=== PATIENT | female | born 1930 | race Caucasian/White ===

== ENCOUNTER 2016-07-01 12:56 | Inpatient (IN) | payer MEDICARE, OTHER ==
[~2016-07-01] VITALS: Ht 152.4 cm; Wt 57.2 kg
[~2016-07-01 12:56] MED LIST: ALBU17I INH; ASPI325T PO; CHOL4 PO; DIGO0.12 PO; DILT180C56 PO; EZET10 PO; FENO160T2 PO; FURO1TAB93 PO; GLIP5 PO; LEVO.1 PO; METO50CR PO; NEXI40CA PO; OMEPPOW PO; OXYB5TAB PO; ROSU40 PO; WAL-10TA2 PO; WARF1TAB PO
[2016-07-01 13:00] VITALS: BP 144/64; PULSE 65; RESP 18; TEMP 98.4; O2SAT 97
--- NOTE | 2016-07-01 13:03 | PD ---
Physical Exam Time Seen by Provider: 13:00 Narrative 86 y/o female here for evaluation of several days of SOB, intermittent L sided chest pain. Vital signs reviewed. Seen at triage desk. Awaiting bed placement. Data Data Last Documented VS Vital Signs Date Time Temp Pulse Resp B/P Pulse Ox O2 Delivery O2 Flow Rate FiO2 07/01/16 13:00 98.4 65 18 144/64 97 Room Air [facility] Medical Record Reviewed: Yes Supervised Visit with XIANG: Gianluca Antonio July 01, 2016 13:03
[2016-07-01 13:11] VITALS: BP 179/74; PULSE 60; RESP 19; O2SAT 96
--- NOTE | 2016-07-01 13:31 | PD ---
HPI Chief Complaint: Chest Pain Time Seen by Provider: 13:17 Travel History International Travel<30 days: No Contact w/Intl Traveler<30days: No Traveled to known affect area: No History of Present Illness HPI 86-year-old female complains of chest pain and shortness of breath. Patient states that the symptoms started 5 days ago. Patient states that she has intermittent dry cough. Patient states that she has intermittent left-sided chest discomfort, pressure pain. Patient states that she has shortness of breath also. Patient states that the symptom is worse when lying down and better sitting up or walking. Patient denies any pain radiation. Patient denies any palpitation diaphoresis. Patient denies any fever chills. Patient has history of atrial fibrillation, CAD status post CABG and OR. Patient has history hypertension, diabetes, hyperlipidemia. Patient is a nonsmoker. Patient is on Coumadin. PFSH Past Medical History Hx Anticoagulant Therapy: Yes Arthritis: Yes Blood Disorders: No Cardiac Catheterization: Yes Cardiovascular Problems: Yes High Cholesterol: Yes Coronary Artery Disease: Yes Diabetes: Yes Patient Takes Glucophage: No GERD: Yes Genitourinary: Yes Hypertension: Yes Psychiatric: No Myocardial Infarction: Yes Thyroid Disease: Yes Past Surgical History Abdominal Surgery: Yes Appendectomy: Yes Section: Yes Coronary Artery Bypass Graft: Yes (5 VESSEL IN 1988, 2002 CABG/VALVE) Thoracic Surgery: Yes Social History Alcohol Use: No Tobacco Use: No Substance Use: No Allergies-Medications (Allergen,Severity, Reaction): Coded Allergies: Nitroglycerin (Verified Allergy, Severe, 07/01/16) Uncoded Allergies: NITRO (Allergy, Unknown, 10/24/02) Reported Meds & Prescriptions Reported Meds & Active Scripts Active Reported Januvia (Sitagliptin Phosphate) 50 Mg Tab 50 Mg PO DAILY Zetia (Ezetimibe) 10 Mg Tab 10 Mg PO DAILY Warfarin 5 Mg Tab 5 Mg PO DAILY Telmisartan 20 Mg Tab 20 Mg PO DAILY Furosemide 40 Mg Tab 40 Mg PO DAILY Glipizide 5 Mg Tab 5 Mg PO BIDAC Take 30 minutes before a meal Ditropan (Oxybutynin Chloride) 5 Mg Tab 5 Mg PO Q12HR Metoprolol Tartrate 50 Mg Tab 50 Mg PO BID Rosuvastatin (Rosuvastatin Calcium) 40 Mg Tab 40 Mg PO DAILY Amlodipine (Amlodipine Besylate) 2.5 Mg Tab 2.5 Mg PO DAILY Fenofibrate 145 Mg Tab 145 Mg PO DAILY Levothyroxine (Levothyroxine Sodium) 100 Mcg Tab 100 Mcg PO DAILY Digoxin 0.25 Mg Tab 0.25 Mg PO DAILY Ventolin Hfa 18 GM Inh (Albuterol Sulfate) 90 Mcg/Act Aer 2 Puff INH Q4-6H PRN Review of Systems General / Constitutional: No: Fever Eyes: No: Visual changes HENT: No: Headaches Cardiovascular: Positive: Chest Pain or Discomfort Respiratory: Positive: Cough, Shortness of Breath Gastrointestinal: No: Abdominal Pain Genitourinary: No: Dysuria Musculoskeletal: No: Pain Skin: No Rash Neurologic: No: Weakness Psychiatric: No: Depression Endocrine: No: Polydipsia Hematologic/Lymphatic: No: Easy Bruising Physical Exam Narrative GENERAL: Well-nourished, well-developed patient. SKIN: Focused skin assessment warm/dry. HEAD: Normocephalic. EYES: No scleral icterus. No injection or drainage. NECK: Supple, trachea midline. No JVD or lymphadenopathy. CARDIOVASCULAR: Regular rate and rhythm without murmurs, gallops, or rubs. RESPIRATORY: Breath sounds equal bilaterally. No accessory muscle use. GASTROINTESTINAL: Abdomen soft, non-tender, nondistended. MUSCULOSKELETAL: No cyanosis, or edema. BACK: Nontender without obvious deformity. No CVA tenderness. Neurologic exam normal. Data Data Last Documented VS Vital Signs Date Time Temp Pulse Resp B/P Pulse Ox O2 Delivery O2 Flow Rate FiO2 07/01/16 14:47 55 18 173/85 98 Nasal Cannula 2 07/01/16 13:00 98.4 Orders Electrocardiogram (07/01/16 13:23) Complete Blood Count With Diff (07/01/16 13:23) Comprehensive Metabolic Panel (07/01/16 13:23) Creatine Kinase (Cpk) (07/01/16 13:23) Troponin I (07/01/16 13:23) B-Type Natriuretic Peptide (07/01/16 13:23) Prothrombin Time / Inr (Pt) (07/01/16 13:23) Act Partial Throm Time (Ptt) (07/01/16 13:23) Urinalysis - C+S If Indicated (07/01/16 13:23) Digoxin (07/01/16 13:23) Thyroid Stimulating Hormone (07/01/16 13:23) Chest, Single Ap (07/01/16 13:23) Iv Access Insert/Monitor (07/01/16 13:23) Ecg Monitoring (07/01/16 13:23) Oximetry (07/01/16 13:23) Ct Pulmonary Angiogram (07/01/16 13:23) Iodixanol 320 Inj (Rad Ct) (Visipaque 32 (07/01/16 15:55) Labs Laboratory Tests Test 07/01/16 07/01/16 13:35 13:41 Prothrombin Time 33.5 SEC Prothromb Time International 2.9 RATIO Ratio Activated Partial 39.7 SEC Thromboplast Time Sodium Level 140 MEQ/L Potassium Level 4.5 MEQ/L Chloride Level 105 MEQ/L Carbon Dioxide Level 28.5 MEQ/L Anion Gap 7 MEQ/L Blood Urea Nitrogen 31 MG/DL Creatinine 1.33 MG/DL Estimat Glomerular Filtration 38 ML/MIN Rate Random Glucose 91 MG/DL Calcium Level 10.3 MG/DL Total Bilirubin 0.4 MG/DL Aspartate Amino Transf 21 U/L (AST/SGOT) Alanine Aminotransferase 20 U/L (ALT/SGPT) Alkaline Phosphatase 41 U/L Total Creatine Kinase 59 U/L Troponin I LESS THAN 0.02 NG/ML Total Protein 7.4 GM/DL Albumin 3.3 GM/DL Thyroid Stimulating Hormone 2.030 uIU/ML 3rd Gen Digoxin Level 1.1 NG/ML White Blood Count 7.7 TH/MM3 Red Blood Count 4.14 MIL/MM3 Hemoglobin 11.4 GM/DL Hematocrit 35.4 % Mean Corpuscular Volume 85.4 FL Mean Corpuscular Hemoglobin 27.6 PG Mean Corpuscular Hemoglobin 32.4 % Concent Red Cell Distribution Width 15.0 % Platelet Count 249 TH/MM3 Mean Platelet Volume 8.3 FL Neutrophils (%) (Auto) 71.9 % Lymphocytes (%) (Auto) 14.1 % Monocytes (%) (Auto) 9.9 % Eosinophils (%) (Auto) 3.3 % Basophils (%) (Auto) 0.8 % Neutrophils # (Auto) 5.5 TH/MM3 Lymphocytes # (Auto) 1.1 TH/MM3 Monocytes # (Auto) 0.8 TH/MM3 Eosinophils # (Auto) 0.3 TH/MM3 Basophils # (Auto) 0.1 TH/MM3 CBC Comment DIFF FINAL Differential Comment B-Type Natriuretic Peptide 187 PG/ML [facility] Medical Decision Making Medical Screen Exam Complete: Yes Emergency Medical Condition: Yes Medical Record Reviewed: Yes Interpretation(s) Last Impressions Chest X-Ray 07/01/16 1323 Signed Impressions: Service Date/Time: Friday, July 01, 2016 13:49 - CONCLUSION: 1. Left basilar consolidation and probable pleural effusion. 2. Cardiomegaly and previous heart valve replacement. 3. Right basilar atelectasis. Jere Salcido MD CT Angiography 07/01/163 Signed Impressions: Service Date/Time: Friday, July 01, 2016 15:33 - CONCLUSION: 1. No evidence of pulmonary embolism. 2. Large left pleural effusion. This would be accessible to percutaneous drainage. 3. Pulmonary fibrosis Duane Damian MD 1701 p.m. Differential Diagnosis Differential diagnosis including angina, OR, PE, pneumothorax. Narrative Course 86-year-old female with chest pain and shortness of breath. Diagnosis Primary Impression: Pleural effusion, left Additional Impressions: Chest pain Qualified Code: R07.9 - Chest pain, unspecified type Chronic anticoagulation Admitting Information Admitting Physician Requests: Admit Dax Madden MD July 01, 2016 13:31
[2016-07-01 13:56] LABS: AUTOMATED NEUTROPHIL # 5.5 TH/MM3 (1.8-7.7); BASOPHIL # 0.1 TH/MM3 (0-0.2); BASOPHIL % 0.8 % (0.0-2.0); EOSINOPHIL # 0.3 TH/MM3 (0-0.4); EOSINOPHIL % 3.3 % (0.0-4.0); HEMATOCRIT 35.4 % (35.0-46.0); HEMO FLAGS DIFF FINAL; LYMPH % 14.1 % (9.0-44.0); LYMPHOCYTE # 1.1 TH/MM3 (1.0-4.8); MEAN CELL VOLUME 85.4 FL (80.0-100.0); MEAN CORPUSCULAR HEMOGLOBIN 27.6 PG (27.0-34.0); MEAN CORPUSCULAR HGB CONC 32.4 % (32.0-36.0); MONO % 9.9 % (0.0-8.0); NEUT % 71.9 % (16.0-70.0); PLATELET COUNT 249 TH/MM3 (150-450); RED BLOOD COUNT 4.14 MIL/MM3 (4.00-5.30); WHITE BLOOD COUNT 7.7 TH/MM3 (4.0-11.0)
[2016-07-01 13:59] VITALS: O2SAT 97
[2016-07-01 14:04] LABS: APTT (PATIENT) 39.7 SEC (24.3-30.1); INTERNATIONAL NORMALIZED RATIO 2.9 RATIO; PROTHROMBIN TIME - PATIENT 33.5 SEC (9.8-11.6)
[2016-07-01 14:11] LABS: ALT (GPT) 20 U/L (10-53); ANION GAP 7 MEQ/L (5-15); AST (GOT) 21 U/L (15-37); BICARBONATE 28.5 MEQ/L (21.0-32.0); BLOOD UREA NITROGEN 31 MG/DL (7-18); CHLORIDE 105 MEQ/L (98-107); GLOMERULAR FILTRATION RATE 38 ML/MIN (>89); POTASSIUM 4.5 MEQ/L (3.5-5.1); SODIUM (NA) 140 MEQ/L (136-145)
--- NOTE | 2016-07-01 14:12 | RADRPT ---
EXAM DATE/TIME: 07/01/2016 13:49 [facility] COMPARISON: No previous studies available for comparison. INDICATIONS : Short of breath for several days. MEDICAL HISTORY : Hypertension. Hypercholesterolemia. Cardiovascular disease. Thyroid disease. GERD. SURGICAL HISTORY : CABG. Appendectomy. ENCOUNTER: Initial ACUITY: 4 - 6 days PAIN SCORE: 3/10 LOCATION: Bilateral chest FINDINGS: A single view of the chest demonstrates left basilar consolidation and probable pleural effusion. Hea rt enlarged and evidence of previous valve replacement. Minimal right basilar atelectasis. Osseous s tructures are intact. CONCLUSION: 1. Left basilar consolidation and probable pleural effusion. 2. Cardiomegaly and previous heart valve replacement. 3. Right basilar atelectasis. Jere Salcido MD on July 01, 2016 at 14:09 Board Certified Radiologist. This report was verified electronically.
[2016-07-01] MEDS ORDERED: OXYB5TAB10 PO (14:15)
[2016-07-01] MEDS ORDERED: VENTAER INH (14:15)
[2016-07-01] MEDS ORDERED: TELM5TAB PO (14:15)
[2016-07-01] MEDS ORDERED: ROSU1TAB10 PO (14:15)
[2016-07-01] MEDS ORDERED: LEVO100T5 PO (14:15)
[2016-07-01] MEDS ORDERED: METO50TA PO (14:15)
[2016-07-01] MEDS ORDERED: SITA50 PO (14:15)
[2016-07-01] MEDS ORDERED: WARF-23 PO (14:15)
[2016-07-01] MEDS ORDERED: ZETI10TA5 PO (14:15)
[2016-07-01] MEDS ORDERED: GLIP5TAB8 PO (14:15)
[2016-07-01] MEDS ORDERED: AMLO2.5T PO (14:15)
[2016-07-01] MEDS ORDERED: FENO145T2 PO (14:15)
[2016-07-01] MEDS ORDERED: DIGO0.25 PO (14:15)
[2016-07-01] MEDS ORDERED: FURO40TA PO (14:15)
[2016-07-01 14:26] LABS: ALKALINE PHOSPHATASE 41 U/L (45-117); DIGOXIN 1.1 NG/ML (0.8-2.0); TOTAL BILIRUBIN ADULT 0.4 MG/DL (0.2-1.0)
[2016-07-01 14:29] LABS: CREATINE KINASE 59 U/L (26-192)
[2016-07-01 14:47] VITALS: BP 173/85; PULSE 55; RESP 18; O2SAT 98
[2016-07-01] MEDS ORDERED: IODIXANOL 320 MG/ML 10 ML VIAL (for Rad CT) IV ONE (15:55)
--- NOTE | 2016-07-01 16:37 | RADRPT ---
EXAM DATE/TIME: 07/01/2016 15:33 [facility] COMPARISON: No previous studies available for comparison. INDICATIONS : Shortness of breath with intermittent chest painfor five days. IV CONTRAST: 50 cc Visipaque (iodixanol) IV RADIATION DOSE: 23.10 CTDIvol (mGy) MEDICAL HISTORY : Cardiovascular disease. Hypertension. Diabetes SURGICAL HISTORY : CABG Appendectomy. ENCOUNTER: Initial ACUITY: 3 days PAIN SCALE: 8/10 LOCATION: chest TECHNIQUE: Volumetric scanning of the chest was performed using a pulmonary embolism protocol MIP images were re constructed. Using automated exposure control and adjustment of the mA and/or kV according to patien t size, radiation dose was kept as low as reasonably achievable to obtain optimal diagnostic quality images. FINDINGS: There is a large left-sided effusion with volume loss which is loculated laterally. There is extensiv e compressive atelectasis of the left lower lobe. There are interstitial alveolar opacities bilateral ly characteristic of idiopathic pulmonary fibrosis. No pulmonary nodules are identified. Coronary artery calcifications are present. Nonspecific slightly enlarged mediastinal and hilar nodes are present likely related to a chronic inflammatory process. Examination of the pulmonary vasculature demonstrates good filling of the main, lobar and segmental b ranches. There are no filling defects to suggest pulmonary embolism. Multiplanar reconstructions are also unremarkable. CONCLUSION: 1. No evidence of pulmonary embolism. 2. Large left pleural effusion. This would be accessible to percutaneous drainage. 3. Pulmonary fibrosis Duane Damian MD on July 01, 2016 at 16:32 Board Certified Radiologist. This report was verified electronically.
[2016-07-01 17:09] VITALS: BP 145/67; PULSE 61; RESP 16; O2SAT 97
[2016-07-01] MEDS ORDERED: SODIUM CHLORIDE 0.9% FLUSH 10 ML FLUSH IV FLUSH PRN (17:30)
[2016-07-01] MEDS ORDERED: ONDANSETRON HCL 4 MG/2 ML VIAL IVP PRN (17:30)
[2016-07-01] MEDS ORDERED: PILL SPLITTER OTHER PRN (17:30)
[2016-07-01] MEDS ORDERED: NALOXONE HCL 0.4 MG/ML AMP IV PRN (17:30)
[2016-07-01] MEDS ORDERED: BISACODYL 10 MG SUPP RECTAL PRN (17:30)
[2016-07-01] MEDS: DOCUSATE SODIUM 100 MG CAP PO SCH (17:50)
[2016-07-01] MEDS ORDERED: PHYTONADIONE 10 MG/ML VIAL SQ ONE (18:00)
--- NOTE | 2016-07-01 18:07 | HHI.HP ---
[facility] Brock Albright MD Admission Diagnosis left pleural effusion. Chest pain. Diagnoses: Chief Complaint: "I couldn't breath." Travel History International Travel<30 Days: No Contact w/Intl Traveler <30 Da: No Traveled to Known Affected Are: No History of Present Illness Mrs. Evans is 86 yo, with history of Atrial fibrillation, CAD, Diabetes Mellitus II, myocardial infarction, hypertension, hyperlipidemia, renal disease, and CHF. She reported having shortness of breath that began "2-3 days ago" with gradual onset. Over the time she found it difficult to lie down and sleep and "felt like I was smothering." She spoke of needing to add an additional pillow to sleep and found herself "sitting up in the bed so I could breathe and sleep." Over the course of the past two days she was "pestered by my family to come in to the hospital and get checked out." She stated she went to get her "blood checked because i am on Coumadin and they sent me in here." Pt noted she has had a cough, but this is attributed to allergies. Pt also reported she has been staggering "like a drunk paper guillotine operator" and upon further questioning this has been occurring over a 2-3 year period. Currently, she is denying fever, nausea, vomiting, diarrhea, bloody stool or urine, light headedness and dizziness was denied. her family denied pt evidencing blue lips. Pt reported having chest pain that was left sided and went to her back. She said this "was different from when I had my heart attack because then I didn't have any pain." Pt said she didn't seek care as "i was hoping it would go away. " She reported right shoulder pain, especially when "lifting her arm above my head." Pain was reported at time of interview as sharp and worsened with shoulder shrug and movement. Pain was reported as "sharp" with intensity not rated. Pt reported having "kidney disease" and family stated she has "stage II or III disease"; her hand polisher is reported to be Dimple Castelan M.D. No other issues were noted or reported. Review of Systems Except as stated in HPI: all other systems reviewed are Neg Past Family Social History Past Medical History Atrial fibrillation, CAD, CHF Diabetes Mellitus II, Environmental Allergies hyperlipidemia, hypertension, hypothyroidism myocardial infarction Past Surgical History Cabg x 2 (1988 and 2002) Valve replacement 2002. Reported Medications Reported Meds & Active Scripts Active Reported Januvia (Sitagliptin Phosphate) 50 Mg Tab 50 Mg PO DAILY Zetia (Ezetimibe) 10 Mg Tab 10 Mg PO DAILY Warfarin 5 Mg Tab 5 Mg PO DAILY Telmisartan 20 Mg Tab 20 Mg PO DAILY Furosemide 40 Mg Tab 40 Mg PO DAILY Glipizide 5 Mg Tab 5 Mg PO BIDAC Take 30 minutes before a meal Ditropan (Oxybutynin Chloride) 5 Mg Tab 5 Mg PO Q12HR Metoprolol Tartrate 50 Mg Tab 50 Mg PO BID Rosuvastatin (Rosuvastatin Calcium) 40 Mg Tab 40 Mg PO DAILY Amlodipine (Amlodipine Besylate) 2.5 Mg Tab 2.5 Mg PO DAILY Fenofibrate 145 Mg Tab 145 Mg PO DAILY Levothyroxine (Levothyroxine Sodium) 100 Mcg Tab 100 Mcg PO DAILY Digoxin 0.25 Mg Tab 0.25 Mg PO DAILY Ventolin Hfa 18 GM Inh (Albuterol Sulfate) 90 Mcg/Act Aer 2 Puff INH Q4-6H PRN Allergies: Coded Allergies: Nitroglycerin (Verified Allergy, Severe, 07/01/16) Uncoded Allergies: NITRO (Allergy, Unknown, 10/24/02) Active Ordered Medications Current Medications Medications (Trade) Dose Ordered Sig/Shlomo Route Start Time Stop Time Status Last Admin (Norvasc) 2.5 mg DAILY PO 07/02/16 09:00 (Lanoxin) 0.25 mg DAILY PO 07/02/16 09:00 (Tricor) 145 mg DAILY PO 07/02/16 09:00 Future Hold (Lasix) 40 mg DAILY PO 07/02/16 09:00 (Synthroid) 100 mcg DAILY@06 PO 07/02/16 06:00 (Lopressor) 50 mg BID PO 07/01/16 21:00 (Ditropan) 5 mg Q12HR PO 07/01/16 21:00 (NS Flush) 2 ml UNSCH PRN IV FLUSH 5/16/17 17:30 (NS Flush) 2 ml BID IV FLUSH 07/01/16 21:00 (Tylenol) 650 mg Q4H PRN PO 07/01/16 17:30 (Zofran Inj) 4 mg Q6H PRN IVP 07/01/16 17:30 (Dulcolax Supp) 10 mg DAILY PRN RECTAL 07/01/16 17:30 (Colace) 100 mg Q12H PO 07/01/16 18:00 07/01/16 17:50 (Narcan Inj) 0.4 mg UNSCH PRN IV 07/01/16 17:30 (Pill Splitter) 1 ea UNSCH PRN OTHER 07/01/16 17:30 (Lipitor) 80 mg DAILY PO 07/02/16 09:00 (Cozaar) 25 mg DAILY PO 07/02/16 09:00 Family History No family history was reported. Social History Pt denied smoking, alcohol, and substance use/abuse. Physical Exam Vital Signs Vital Signs Date Time Temp Pulse Resp B/P Pulse Ox O2 Delivery O2 Flow Rate FiO2 07/01/16 17:09 61 16 145/67 97 Nasal Cannula 2 07/01/16 14:47 55 18 173/85 98 Nasal Cannula 2 07/01/16 13:59 97 Nasal Cannula 2 07/01/16 13:11 60 19 179/74 96 Nasal Cannula 2 07/01/16 13:00 98.4 65 18 144/64 97 Room Air Physical Exam GENERAL: This is a well-nourished, well-developed patient, pleasant and cooperative, in no apparent distress. SKIN: No rashes, ecchymoses or lesions. Cool and dry. HEAD: Atraumatic. Normocephalic. No temporal or scalp tenderness. EYES: Pupils equal round and reactive. Extraocular motions intact. No scleral icterus. No injection or drainage. ENT: Nose without bleeding, purulent drainage. Throat without erythema, tonsillar hypertrophy or exudate. Uvula midline. Airway patent. Upper and lower dentures present. NECK: Trachea midline. No JVD or lymphadenopathy. Supple, nontender. CARDIOVASCULAR: Regular rate and rhythm without murmurs, gallops, or rubs. RESPIRATORY: Clear to auscultation. Breath sounds good on the right. Left sided breath sounds were distant and diminished. No wheezes, rales, or rhonchi. pt on nasal cannula oxygen at time of examination. GASTROINTESTINAL: Abdomen soft, non-tender, nondistended. No hepato-splenomegaly , or palpable masses. No guarding. MUSCULOSKELETAL: Extremities without clubbing, cyanosis. Trace bilateral edema noted. Varicose veins noted on lower extremities. No joint tenderness, effusion , or edema noted. No calf tenderness. NEUROLOGICAL: Awake and alert. Cranial nerves II through XII intact. Motor and sensory grossly within normal limits. Five out of 5 muscle strength in upper muscle groups with 3/5 for lower extremities. Normal speech. Laboratory Laboratory Tests Test 07/01/16 07/01/16 13:35 13:41 Prothrombin Time 33.5 Prothromb Time International 2.9 Ratio Activated Partial 39.7 Thromboplast Time Sodium Level 140 Potassium Level 4.5 Chloride Level 105 Carbon Dioxide Level 28.5 Anion Gap 7 Blood Urea Nitrogen 31 Creatinine 1.33 Estimat Glomerular Filtration 38 Rate Random Glucose 91 Calcium Level 10.3 Total Bilirubin 0.4 Aspartate Amino Transf 21 (AST/SGOT) Alanine Aminotransferase 20 (ALT/SGPT) Alkaline Phosphatase 41 Total Creatine Kinase 59 Troponin I LESS THAN 0.02 Total Protein 7.4 Albumin 3.3 Thyroid Stimulating Hormone 2.030 3rd Gen Digoxin Level 1.1 White Blood Count 7.7 Red Blood Count 4.14 Hemoglobin 11.4 Hematocrit 35.4 Mean Corpuscular Volume 85.4 Mean Corpuscular Hemoglobin 27.6 Mean Corpuscular Hemoglobin 32.4 Concent Red Cell Distribution Width 15.0 Platelet Count 249 Mean Platelet Volume 8.3 Neutrophils (%) (Auto) 71.9 Lymphocytes (%) (Auto) 14.1 Monocytes (%) (Auto) 9.9 Eosinophils (%) (Auto) 3.3 Basophils (%) (Auto) 0.8 Neutrophils # (Auto) 5.5 Lymphocytes # (Auto) 1.1 Monocytes # (Auto) 0.8 Eosinophils # (Auto) 0.3 Basophils # (Auto) 0.1 CBC Comment DIFF FINAL Differential Comment B-Type Natriuretic Peptide 187 Result Diagram: 07/01/16 1341 07/01/16 1335 Imaging Last Impressions Chest X-Ray 07/01/16 1323 Signed Impressions: Service Date/Time: Friday, July 01, 2016 13:49 - CONCLUSION: 1. Left basilar consolidation and probable pleural effusion. 2. Cardiomegaly and previous heart valve replacement. 3. Right basilar atelectasis. Jere Salcido MD CT Angiography 07/01/16 1323 Signed Impressions: Service Date/Time: Friday, July 01, 2016 15:33 - CONCLUSION: 1. No evidence of pulmonary embolism. 2. Large left pleural effusion. This would be accessible to percutaneous drainage. 3. Pulmonary fibrosis Duane Damian MD Assessment and Plan Problem List: (1) Pleural effusion, left ICD Code: J90 Status: Acute (2) Chronic anticoagulation ICD Code: Z79.01 Status: Acute (3) Chest pain ICD Code: R07.9 Status: Acute (4) Atrial fibrillation ICD Code: I48.91 Status: Chronic (5) Diabetes mellitus, type II ICD Code: E11.9 Status: Chronic (6) CHF (congestive heart failure) ICD Code: I50.9 Status: Chronic (7) Renal disease ICD Code: N28.9 Status: Acute Assessment and Plan Pleural effusion, left atrial fibrillation CHF Chronic anticoagulation hypertension Chest pain -Pt's INR is elevated and will be reversed with Vitamin K. -Due to her CHF, frozen plasma can't be used out of concern of volume overload. -Because of kidney status diuretics can't be used at this time to address the pleural effusion. -Continue home beta steven. Will hold her Cozaar due to renal issues. -Supplemental oxygen ordered. Diabetes mellitus -holding home medication and placing pt on sliding scale insulin. acute on chronic kidney disease -BUN and Creatine are elevated (31 and 1.33 respectively) with a ratio of 23.31. -avoid nephrotoxic agents. -Due to CHF concerns, IVF can't be used at this time to address these elevations. Patient seen in the room in the presence of PA, her , her Son and her Daughter in law all questions answered and plan of care discussed. Code Status Full Code Discussed Condition With Case discussed with ED physician, PT, Pt's family at bedside. Physician Certification 2 Midnight Certification Type: Admission for Inpatient Services Order for Inpatient Services The services are ordered in accordance with Medicare regulations or non- Medicare payer requirements, as applicable. In the case of services not specified as inpatient-only, they are appropriately provided as inpatient services in accordance with the 2-midnight benchmark. Estimated LOS (days): 3 Three days is the estimated time the patient will need to remain in the hospital , assuming treatment plan goals are met and no additional complications. Post-Hospital Plan: Home Problem Qualifiers (1) Chest pain: Qualified Code: R07.9 - Chest pain, unspecified type (2) Atrial fibrillation: Qualified Code: I48.2 - Chronic atrial fibrillation (3) Diabetes mellitus, type II: (4) CHF (congestive heart failure): Qualified Code: I50.9 - Chronic congestive heart failure, unspecified congestive heart failure type Galo Johnston Jr. July 01, 2016 18:07 Eloy Cai MD July 02, 2016 07:49
[2016-07-01 19:39] LABS: CREATINE KINASE 43 U/L (26-192)
[2016-07-01 20:00] VITALS: BP 120/58; PULSE 66; RESP 20; TEMP 97.7; O2SAT 96
[2016-07-01] MEDS: METOPROLOL TARTRATE 50 MG TAB PO SCH (22:10)
[2016-07-01] MEDS: OXYBUTYNIN CHLORIDE 5 MG TAB PO SCH (22:10)
[2016-07-01] MEDS: SODIUM CHLORIDE 0.9% FLUSH 10 ML FLUSH IV FLUSH SCH (22:11)
[2016-07-01] MEDS: INSULIN NovoLIN REGULAR SUPPLEMENTAL SCALE SQ SCH (22:18)
[2016-07-01 23:35] LABS: BLOOD, URINE NEG (NEG); GLUCOSE,URINE 300 mg/dL (NEG); KETONE, URINE NEG (NEG); NITRITE,URINE NEG (NEG); PH, URINE 6.5 (5.0-8.5); URINE COLOR YELLOW (YELLW/STRAW)
[2016-07-01 23:37] LABS: COMMENT (UR) CULT NOT INDICATED; CULTURE IF INDICATED CULT NOT INDICATED
[2016-07-01 23:55] LABS: CREATINE KINASE 30 U/L (26-192)
[2016-07-02] VITALS (8 sets, daily range): BP systolic 112–144; BP diastolic 56–64; PULSE 53–68; RESP 16–20; TEMP 97.6–98.3; O2SAT 96–98
[2016-07-02] MEDS: LEVOTHYROXINE SODIUM 100 MCG TAB PO SCH (06:37)
[2016-07-02] MEDS: DOCUSATE SODIUM 100 MG CAP PO SCH ×2 (06:37→17:31)
[2016-07-02 06:49] LABS: AUTOMATED NEUTROPHIL # 5.5 TH/MM3 (1.8-7.7); BASOPHIL # 0.1 TH/MM3 (0-0.2); BASOPHIL % 0.8 % (0.0-2.0); EOSINOPHIL # 0.3 TH/MM3 (0-0.4); EOSINOPHIL % 3.8 % (0.0-4.0); HEMATOCRIT 33.1 % (35.0-46.0); HEMO FLAGS DIFF FINAL; LYMPH % 14.5 % (9.0-44.0); LYMPHOCYTE # 1.2 TH/MM3 (1.0-4.8); MEAN CELL VOLUME 83.9 FL (80.0-100.0); MEAN CORPUSCULAR HEMOGLOBIN 28.7 PG (27.0-34.0); MEAN CORPUSCULAR HGB CONC 34.2 % (32.0-36.0); MONO % 11.3 % (0.0-8.0); NEUT % 69.6 % (16.0-70.0); PLATELET COUNT 241 TH/MM3 (150-450); RED BLOOD COUNT 3.95 MIL/MM3 (4.00-5.30); RED CELL DISTRIBUTION WIDTH 15.3 % (11.6-17.2); WHITE BLOOD COUNT 7.9 TH/MM3 (4.0-11.0)
[2016-07-02 07:00] LABS: INTERNATIONAL NORMALIZED RATIO 2.2 RATIO; PROTHROMBIN TIME - PATIENT 24.6 SEC (9.8-11.6)
[2016-07-02] MEDS: INSULIN NovoLIN REGULAR SUPPLEMENTAL SCALE SQ SCH ×4 (07:00→21:00)
[2016-07-02 07:08] LABS: BICARBONATE 27.7 MEQ/L (21.0-32.0); POTASSIUM 3.9 MEQ/L (3.5-5.1)
[2016-07-02] MEDS: SODIUM CHLORIDE 0.9% FLUSH 10 ML FLUSH IV FLUSH SCH ×2 (08:42→23:40)
[2016-07-02] MEDS: ATORVASTATIN 80 MG TAB PO SCH (08:42)
[2016-07-02] MEDS: amLODIPine BESYLATE 5 MG TAB PO SCH (08:42)
[2016-07-02] MEDS: METOPROLOL TARTRATE 50 MG TAB PO SCH ×2 (08:42→23:35)
[2016-07-02] MEDS: DIGOXIN 0.25 MG TAB PO SCH (08:42)
[2016-07-02] MEDS: OXYBUTYNIN CHLORIDE 5 MG TAB PO SCH ×2 (08:42→23:36)
[2016-07-02] MEDS ORDERED: FUROSEMIDE 40 MG TAB PO SCH (09:00)
[2016-07-02] MEDS ORDERED: FENOFIBRATE 145 MG TAB PO SCH (09:00)
[2016-07-02] MEDS ORDERED: LOSARTAN 25 MG TAB PO SCH (09:00)
[2016-07-02] MEDS ORDERED: TELMISARTAN 20 MG PO SCH (09:00)
[2016-07-02] MEDS ORDERED: WARFARIN SOD 5 MG TAB PO SCH (09:00)
[2016-07-02] MEDS ORDERED: NON-FORMULARY DRUG (Rosuvastatin 40 MG) PO SCH (09:00)
--- NOTE | 2016-07-02 11:04 | EKG ---
Date Performed: 07/01/2016 Time Performed: 13:39:48 PTAGE: 86 years EKG: SINUS BRADYCARDIA NONSPECIFIC T-WAVE ABNORMALITY BORDERLINE ECG PREVIOUS TRACING : 02/26/2012 07.02 DOCTOR: Augustine Alejandre Interpretating Date/Time 07/02/2016 11:02:15
[2016-07-02] MEDS ORDERED: FUROSEMIDE 20 MG/2 ML VIAL IV PUSH ONE (13:15)
--- NOTE | 2016-07-02 13:18 | HHI.PR ---
Subjective Remarks Follow up for shortness of breath, pleural effusion. Patient is doing better today. Denies any chest pain, shortness of breath, fever, chills. Objective Vitals Vital Signs Date Time Temp Pulse Resp B/P Pulse Ox O2 Delivery O2 Flow Rate FiO2 07/02/16 08:00 97.6 68 20 144/64 97 07/02/16 04:00 98.0 53 20 124/59 98 07/02/16 00:00 98.0 65 18 112/56 96 07/01/16 20:00 97.7 66 20 120/58 96 07/01/16 17:09 61 16 145/67 97 Nasal Cannula 2 07/01/16 14:47 55 18 173/85 98 Nasal Cannula 2 07/01/16 13:59 97 Nasal Cannula 2 I/O 07/01/16 07/01/16 07/01/16 07/02/16 07/02/16 07/02/16 07:00 15:00 23:00 07:00 15:00 23:00 Intake Total 120 ml 120 ml Output Total 240 ml Balance 120 ml -120 ml Intake Oral 120 ml 120 ml Output Urine Total 240 ml # Voids 1 # Bowel Movements 0 0 Result Diagram: 07/02/16 0605 07/02/16 0625 Imaging Last Impressions Chest X-Ray 07/01/161322 Signed Impressions: Service Date/Time: Friday, July 01, 2016 13:49 - CONCLUSION: 1. Left basilar consolidation and probable pleural effusion. 2. Cardiomegaly and previous heart valve replacement. 3. Right basilar atelectasis. Jere Salcido MD CT Angiography 07/01/161322 Signed Impressions: Service Date/Time: Friday, July 01, 2016 15:33 - CONCLUSION: 1. No evidence of pulmonary embolism. 2. Large left pleural effusion. This would be accessible to percutaneous drainage. 3. Pulmonary fibrosis Duane Damian MD Objective Remarks GENERAL: AOx3, NAD. SKIN: Warm and dry. HEAD: Normocephalic. EYES: No scleral icterus. No injection or drainage. NECK: Supple, trachea midline. No JVD or lymphadenopathy. CARDIOVASCULAR: Regular rate and rhythm without murmurs, gallops, or rubs. RESPIRATORY: Diminished breath sound on the left lower lung field. Moderate air entry. Right basilar crackles. GASTROINTESTINAL: Abdomen soft, non-tender, nondistended. MUSCULOSKELETAL: No cyanosis, or edema. BACK: Nontender without obvious deformity. No CVA tenderness. Procedures None. A/P Problem List: (1) Pleural effusion, left ICD Code: J90 Status: Acute (2) Chronic anticoagulation ICD Code: Z79.01 Status: Acute (3) Chest pain ICD Code: R07.9 Status: Acute (4) Atrial fibrillation ICD Code: I48.91 Status: Chronic (5) Diabetes mellitus, type II ICD Code: E11.9 Status: Chronic (6) CHF (congestive heart failure) ICD Code: I50.9 Status: Chronic (7) Renal disease ICD Code: N28.9 Status: Acute Assessment and Plan Ms. Evans is a pleasant 86 year old female with a history of CAD s/p CABG, Afib on warfarin who presented to the ED on 07/01/2016 due to chest pain, shortness of breath. Her symptoms started 5 days prior to this hospitalization. She reports orthopnea. She did not have any fever, chills BNP was 187 on admission. Troponin x 3 negative. Creatinine 1.33 on admission. INR 2.9 on admission. Large left pleural effusion was noted on CT and CXR. - Acute respiratory failure hypoxic - Large left pleural effusion - Likely due to pleural effusion. - CXR, CT angio images reviewed by me. CXR reports possible consolidation. - Will increase lasix to 20mg IV BID. - Repeat INR in the AM. If INR is below 1.5, we will request IR to do a diagnostic and therapeutic thoracentesis. - If INR is above 1.5 or above the threshold set by IR, we will give FFP first. - We will empirically start patient on Levaquin 750mg Qday - Diabetes mellitus - Start Levemir 7 units QHS, continue sliding scale insulin. May need to titrate Levemir and add pre-meal insulin. - CAD s/p CABG - Hyperlipidemia - Hypertension - Atrial fibrillation - Continue Amlodipine 2.5mg Qday - Continue Atorvastatin 80mg Qday, metoprolol 50mg BID, Digoxin 0.25mg Qday. - Continue Lasix IV 20mg BID. - Hypothyroidism - Continue Levothyroxine 100 mcg Qday. Full code. Was on warfarin. INR 2.2 today. Problem Qualifiers (1) Chest pain: Qualified Code: R07.9 - Chest pain, unspecified type (2) Atrial fibrillation: Qualified Code: I48.2 - Chronic atrial fibrillation (3) Diabetes mellitus, type II: (4) CHF (congestive heart failure): Qualified Code: I50.9 - Chronic congestive heart failure, unspecified congestive heart failure type Mary Jo Crenshaw DO July 02, 2016 13:18
--- NOTE | 2016-07-02 17:24 | EC ---
Study Study Date:07/02/2016 STUDY CONCLUSIONS SUMMARY - Left ventricle: The cavity size was normal. Wall thickness was normal. Systolic function was normal. The estimated ejection fraction was 55%. Wall motion was normal; there were no regional wall motion abnormalities. - Aortic valve: Calcified annulus. Trileaflet; mildly thickened, mildly calcified leaflets. Transvalvular velocity was increased. There was mild stenosis. Trace regurgitation. Mean gradient: 17mm Hg (S). Peak gradient: 32mm Hg (S). Valve area: 1.11cm^2 (Vmax). - Mitral valve: Mild to moderate regurgitation. - Tricuspid valve: Mild-moderate regurgitation. - Pulmonary arteries: Systolic pressure was moderately increased. PA peak pressure:57mm Hg (S). - Pericardium, extracardiac: There was no pericardial effusion. Fibrinous pleural effusion. If LV function is below 40, please consider prescribing an ACEI or ARB or document rationale for non-use. PROCEDURE DATA STUDY STATUS: Elective. Procedure: Transthoracic echocardiography. Image quality was good. Scanning was performed from the parasternal, apical, and subcostal acoustic windows. Study completion: The patient tolerated the procedure well. Transthoracic echocardiography. M-mode, complete 2D, complete spectral Doppler, and color Doppler. Height: Height: 60in. Weight: Weight: 125.7lb. Body mass index: BMI: 24.6kg/m^2. Body surface area: BSA: 1.53m^2. Patient status: Inpatient. CARDIAC ANATOMY LEFT VENTRICLE: The cavity size was normal. Wall thickness was normal. Systolic function was normal. The estimated ejection fraction was 55%. Wall motion was normal; there were no regional wall motion abnormalities. AORTIC VALVE: Calcified annulus. Trileaflet; mildly thickened, mildly calcified leaflets. Doppler: Transvalvular velocity was increased. There was mild stenosis. Trace regurgitation. Valve area: 1.11cm^2 (Vmax). Indexed valve area: 0.73cm^2/m^2 (Vmax). Mean gradient: 17mm Hg (S). Peak gradient: 32mm Hg (S). AORTA: Aortic root: The aortic root was normal in size. MITRAL VALVE: Structurally normal valve. Doppler: Transvalvular velocity was within the normal range. There was no evidence for stenosis. Mild to moderate regurgitation. LEFT ATRIUM: The atrium was normal in size. RIGHT VENTRICLE: The cavity size was normal. Wall thickness was normal. PULMONIC VALVE: Doppler: Transvalvular velocity was within the normal range. There was no evidence for stenosis. No regurgitation. Peak gradient: 18mm Hg (S). TRICUSPID VALVE: Structurally normal valve. Doppler: Transvalvular velocity was within the normal range. Mild-moderate regurgitation. PULMONARY ARTERY: The main pulmonary artery was normal-sized. Systolic pressure was moderately increased. RIGHT ATRIUM: The atrium was normal in size. PERICARDIUM: There was no pericardial effusion. Fibrinous pleural effusion. SYSTEMIC VEINS: Inferior vena cava: The vessel was normal in size. Patient weight: 125.7lb _Ejection fraction:_ 65-75% _Fractional shortening:_ 32% up to 5Kg 5-11.5Kg 11.6-22.9Kg 23-45Kg 45-57Kg Aortic Root 7-13 <17 13-22 17-27 17-27 LA diam 6-13 <23 24-38 33-47 37-40 RVID 10-17 7-15 7-15 7-18 8-17 LVIDd 12-22 <32 24-38 33-47 37-40 LVPW 2-4 3-6 5-7 6-8 7-8 IVS 2-4 3-6 5-7 6-8 7-8 BASIC MEASUREMENTS ADULT NORMAL Left ventricle LV internal dimension, ED, chordal 44 mm 43-52 level, PLAX LV internal dimension, ES, chordal 35.9 mm 23-38 level, PLAX Fractional shortening, chordal level, *18 % >29 PLAX LV posterior wall thickness, ED 8.39 mm IVS/LVPW ratio, ED 0.99 <1.3 Ventricular septum Septal thickness, ED 8.31 mm Aortic valve Leaflet separation *14 mm 15-26 BASIC MEASUREMENTS ADULT NORMAL Aortic valve Leaflet separation *14 mm 15-26 Aorta Root diameter, ED 26 mm 20-37 Left atrium Anterior-posterior dimension, ES 38 mm 19-40 Anterior-posterior dimension index, ES *2.48 cm/m^2 <2.2 LA/aortic root ratio 1.46 DOPPLER MEASUREMENTS ADULT NORMAL Main pulmonary artery Pressure, S *39 mm Hg =30 Aortic valve Peak velocity, S 281 cm/s Mean velocity, S 193 cm/s VTI, S 60.9 cm Mean gradient, S 17 mm Hg Peak gradient, S 32 mm Hg Valve area, Vmax 1.11 cm^2 Valve area index, Vmax 0.73 cm^2/m^2 Regurgitant velocity, ED 391 cm/s Regurgitant deceleration 1210 cm/s^2 Regurgitant pressure half-time 949 ms Regurgitant gradient, ED 61 mm Hg Mitral valve Maximal regurgitant velocity 600 cm/s Tricuspid valve Regurgitant peak velocity 343 cm/s Peak RV-RA gradient, S 47 mm Hg Maximal regurgitant velocity 343 cm/s Systemic veins Estimated CVP 10 mm Hg Right ventricle RV pressure, S *57 mm Hg <30 Pulmonic valve Peak velocity, S 212 cm/s Peak gradient, S 18 mm Hg LEGEND: Mean values are shown as u=mean value. Asterisk (*) ochoa values outside specified normal range. Adalberto Cotton [id number]
[2016-07-02] MEDS ORDERED: INSULIN DETEMIR 100 UNITS/ML VIAL SQ SCH (21:00)
[2016-07-02] MEDS: ACETAMINOPHEN 325 MG TAB PO PRN (23:39)
[2016-07-03] VITALS (8 sets, daily range): BP systolic 99–157; BP diastolic 59–72; PULSE 50–118; RESP 16–20; TEMP 97–98.1; O2SAT 93–97
[2016-07-03] MEDS: INSULIN NovoLIN REGULAR SUPPLEMENTAL SCALE SQ SCH ×2 (06:09→11:41)
[2016-07-03] MEDS: LEVOTHYROXINE SODIUM 100 MCG TAB PO SCH (06:11)
[2016-07-03] MEDS: DOCUSATE SODIUM 100 MG CAP PO SCH (06:11)
[2016-07-03] MEDS: OXYBUTYNIN CHLORIDE 5 MG TAB PO SCH (08:46)
[2016-07-03] MEDS: ATORVASTATIN 80 MG TAB PO SCH (08:46)
[2016-07-03] MEDS: METOPROLOL TARTRATE 50 MG TAB PO SCH (08:46)
[2016-07-03] MEDS: amLODIPine BESYLATE 5 MG TAB PO SCH (08:46)
[2016-07-03] MEDS: DIGOXIN 0.25 MG TAB PO SCH (08:46)
[2016-07-03] MEDS: SODIUM CHLORIDE 0.9% FLUSH 10 ML FLUSH IV FLUSH SCH (08:47)
[2016-07-03] MEDS ORDERED: LEVOFLOXACIN 750 MG TAB PO SCH (09:00)
[2016-07-03] MEDS ORDERED: FUROSEMIDE 20 MG/2 ML VIAL IV PUSH SCH (09:00)
[2016-07-03 09:31] LABS: INTERNATIONAL NORMALIZED RATIO 1.2 RATIO; PROTHROMBIN TIME - PATIENT 13.8 SEC (9.8-11.6)
--- NOTE | 2016-07-03 11:37 | RADRPT ---
EXAM DATE/TIME: 07/03/2016 11:09 [facility] COMPARISON: No previous studies available for comparison. INDICATIONS : Short of breath, post thoracentesis MEDICAL HISTORY : Hypertension. Cardiovascular disease. SURGICAL HISTORY : CABG. valve replacement ENCOUNTER: Subsequent ACUITY: 4 - 6 days PAIN SCORE: 1/10 LOCATION: Bilateral chest FINDINGS: A single view of the chest demonstrates the lungs to be symmetrically aerated without evidence of mas s, or infiltrate. Large left pleural effusion with cardiomegaly. Osseous structures are intact. Ster nal wires and clips suggest previous CABG. Mild pulmonary vascular congestion. CONCLUSION: Large left pleural effusion. Cardiomegaly. Augustine Lan MD on July 03, 2016 at 11:34 Board Certified Radiologist. This report was verified electronically.
[2016-07-03] MEDS: ACETAMINOPHEN 325 MG TAB PO PRN (11:40)
--- NOTE | 2016-07-03 12:45 | HHI.PR ---
Subjective Remarks Follow-up for shortness of breath, pleural effusion. Patient is currently doing well. Not requiring any supplemental oxygen. Denies any chest pain, shortness of breath, fever or chills. Eating her lunch at the time of this examination. Objective Vitals Vital Signs Date Time Temp Pulse Resp B/P Pulse Ox O2 Delivery O2 Flow Rate FiO2 07/03/16 09:30 95 07/03/16 09:30 95 Nasal Cannula 07/03/16 09:00 Room Air 07/03/16 08:00 Nasal Cannula 2.00 07/03/16 08:00 98.0 60 16 127/59 94 07/03/16 04:00 98.0 50 18 157/69 94 07/03/16 00:00 97.8 51 18 140/62 93 07/02/16 20:20 59 07/02/16 20:00 98.3 66 16 134/61 96 07/02/16 18:20 96 Nasal Cannula 2.00 07/02/16 16:00 97.9 62 20 122/58 97 I/O 07/02/16 07/02/16 07/02/16 07/03/16 07/03/16 07/03/16 07:00 15:00 23:00 07:00 15:00 23:00 Intake Total 120 ml 480 ml 120 ml Output Total 240 ml 400 ml Balance -120 ml 80 ml 120 ml Intake Oral 120 ml 480 ml 120 ml Output Urine Total 240 ml 400 ml # Voids 3 # Bowel Movements 0 1 0 Result Diagram: 07/02/16 0605 07/02/16 0625 Imaging Last Impressions Chest X-Ray 07/03/16 0000 Signed Impressions: Service Date/Time: June 11:09 - CONCLUSION: Large left pleural effusion. Cardiomegaly. Augustine Lan MD CT Angiography 07/01/16 1323 Signed Impressions: Service Date/Time: Friday, July 01, 2016 15:33 - CONCLUSION: 1. No evidence of pulmonary embolism. 2. Large left pleural effusion. This would be accessible to percutaneous drainage. 3. Pulmonary fibrosis Duane Damian MD Objective Remarks GENERAL: AOx3, NAD. SKIN: Warm and dry. HEAD: Normocephalic. EYES: No scleral icterus. No injection or drainage. NECK: Supple, trachea midline. No JVD or lymphadenopathy. CARDIOVASCULAR: Regular rate and rhythm without murmurs, gallops, or rubs. RESPIRATORY: Diminished breath sound on the left lower lung field. Moderate air entry. Right basilar crackles. GASTROINTESTINAL: Abdomen soft, non-tender, nondistended. MUSCULOSKELETAL: No cyanosis, or edema. BACK: Nontender without obvious deformity. No CVA tenderness. Procedures None. A/P Problem List: (1) Pleural effusion, left ICD Code: J90 Status: Acute (2) Chronic anticoagulation ICD Code: Z79.01 Status: Acute (3) Chest pain ICD Code: R07.9 Status: Acute (4) Atrial fibrillation ICD Code: I48.91 Status: Chronic (5) Diabetes mellitus, type II ICD Code: E11.9 Status: Chronic (6) CHF (congestive heart failure) ICD Code: I50.9 Status: Chronic (7) Renal disease ICD Code: N28.9 Status: Acute Assessment and Plan Ms. Evans is a pleasant 86 year old female with a history of CAD s/p CABG, Afib on warfarin who presented to the ED on 07/01/2016 due to chest pain, shortness of breath. Her symptoms started 5 days prior to this hospitalization. She reports orthopnea. She did not have any fever, chills BNP was 187 on admission. Troponin x 3 negative. Creatinine 1.33 on admission. INR 2.9 on admission. Large left pleural effusion was noted on CT and CXR. - Acute respiratory failure hypoxic - Large left pleural effusion - Likely due to pleural effusion. - CXR, CT angio images reviewed by me. CXR reports possible consolidation. - Increased lasix to 20mg IV BID. - INR today is 1.2. Chest x-ray today shows persistent left pleural effusion. Images reviewed by me. - Continue Levaquin 750mg Qday for 7 days - Diabetes mellitus - Start Levemir 7 units QHS, continue sliding scale insulin. May need to titrate Levemir and add pre-meal insulin. - CAD s/p CABG - Hyperlipidemia - Hypertension - Atrial fibrillation - Continue Amlodipine 2.5mg Qday - Continue Atorvastatin 80mg Qday, metoprolol 50mg BID, Digoxin 0.25mg Qday. - Continue Lasix IV 20mg BID. - Hypothyroidism - Continue Levothyroxine 100 mcg Qday. Full code. Was on warfarin. INR 1.2 today. Problem Qualifiers (1) Chest pain: Qualified Code: R07.9 - Chest pain, unspecified type (2) Atrial fibrillation: Qualified Code: I48.2 - Chronic atrial fibrillation (3) Diabetes mellitus, type II: (4) CHF (congestive heart failure): Qualified Code: I50.9 - Chronic congestive heart failure, unspecified congestive heart failure type Mary Jo Crenshaw DO July 03, 2016 12:45
[2016-07-03] MEDS ORDERED: TORS10TA2 PO (12:47)
[2016-07-03] MEDS ORDERED: LEVA750T PO (12:47)
--- NOTE | 2016-07-03 16:08 | RADRPT ---
EXAM DATE/TIME: 07/03/2016 15:54 [facility] COMPARISON: CHEST SINGLE AP, July 03, 2016, 11:09. INDICATIONS : Post left thoracentesis. MEDICAL HISTORY : Cardiovascular disease. Hypertension diabetes SURGICAL HISTORY : cabg.x2 ENCOUNTER: Initial ACUITY: 2 days PAIN SCORE: 0/10 LOCATION: Bilateral chest FINDINGS: A single frontal expiratory view of the chest was performed. The left pleural effusion seen previousl y has markedly decreased in size. Atelectasis left midlung zone The lungs are clear. No evidence o f pneumothorax. Mediastinal structures are in the midline. The cardio-mediastinal contours and bronchopulmonary markings are unremarkable for an expiratory exam . Osseous structures are intact. Prominent humeral head osteophytes bilaterally. 4 intact sternal wi res CONCLUSION: The left pleural effusion is much smaller. No evidence of pneumothorax. Minimal consolidation left toan ng base with some platelike atelectasis. Augustine Lan MD on July 03, 2016 at 16:05 Board Certified Radiologist. This report was verified electronically.
--- NOTE | 2016-07-03 16:35 | RADRPT ---
EXAM DATE/TIME: 07/03/2016 14:46 [facility] COMPARISON: CHEST EXPIRATION ONLY, July 03, 2016, 15:54. INDICATIONS : Left pleural effusion. MEDICAL HISTORY : Myocardial infarction. Hypercholesterolemia. Gastroesophageal reflux disease. Thyroid disease. Dizzin ess. CAD. Hypertension. Dyspnea. Arthritis. Diabetes. A. FIB. CHF. Renal disease. SURGICAL HISTORY : Appendectomy. section. CABG. ENCOUNTER: Initial ACUITY: 1 day PAIN SCORE: 0/10 LOCATION: Left chest FLUID: Total volume of 850 cc of clear, yellow fluid was removed. Fluid was sent to lab for ordered studies. TECHNIQUE: 1. Ultrasound guidance for thoracentesis. 2. Thoracentesis. The risks, benefits, and alternatives to ultrasound guided thoracentesis were explained to the patien t in lay simple terms, including the risk of bleeding and infection. Written and verbal informed con sent was obtained. Appropriate area for thoracentesis was marked under ultrasound guidance with the patient in the uprig ht position. Overlying skin was prepped and draped in the usual sterile fashion and with local anest hetic, a dermatotomy was made with an 11 blade scalpel. A 6 [place] thoracentesis catheter was placed in the pleural space and fluid was removed. Catheter was then removed and a sterile dressing applie d. There were no immediate complications. The patient tolerated the procedure well and the left the ultrasound suite in stable condition. Chest radiograph is to be obtained. CONCLUSION: Uncomplicated ultrasound guided thoracentesis. Duane Damian MD on July 03, 2016 at 16:34 Board Certified Radiologist. This report was verified electronically.
--- NOTE | 2016-07-03 17:16 | HHI.DS ---
Discharge Summary Admission Date July 01, 2016 at 17:30 Discharge Date: July 03, 2016 Admitting Diagnosis left pleural effusion. Chest pain. (1) Pleural effusion, left ICD Code: J90 Diagnosis: Principal (2) Chronic anticoagulation ICD Code: Z79.01 (3) Chest pain ICD Code: R07.9 (4) Atrial fibrillation ICD Code: I48.91 (5) Diabetes mellitus, type II ICD Code: E11.9 (6) CHF (congestive heart failure) ICD Code: I50.9 (7) Renal disease ICD Code: N28.9 Procedures Thoracentesis 07/03/2016 Brief History - From Admission Mrs. Evans is 86 yo, with history of Atrial fibrillation, CAD, Diabetes Mellitus II, myocardial infarction, hypertension, hyperlipidemia, renal disease, and CHF. She reported having shortness of breath that began "2-3 days ago" with gradual onset. Over the time she found it difficult to lie down and sleep and "felt like I was smothering." She spoke of needing to add an additional pillow to sleep and found herself "sitting up in the bed so I could breathe and sleep." Over the course of the past two days she was "pestered by my family to come in to the hospital and get checked out." She stated she went to get her "blood checked because i am on Coumadin and they sent me in here." Pt noted she has had a cough, but this is attributed to allergies. Pt also reported she has been staggering "like a drunk fish hatchery inspector" and upon further questioning this has been occurring over a 2-3 year period. Currently, she is denying fever, nausea, vomiting, diarrhea, bloody stool or urine, light headedness and dizziness was denied. her family denied pt evidencing blue lips. Pt reported having chest pain that was left sided and went to her back. She said this "was different from when I had my heart attack because then I didn't have any pain." Pt said she didn't seek care as "i was hoping it would go away. " She reported right shoulder pain, especially when "lifting her arm above my head." Pain was reported at time of interview as sharp and worsened with shoulder shrug and movement. Pain was reported as "sharp" with intensity not rated. Pt reported having "kidney disease" and family stated she has "stage II or III disease"; her furnace mechanic is reported to be Dimple Castelan M.D. No other issues were noted or reported. CBC/BMP: 07/02/16 0605 07/02/16 0625 Significant Findings Laboratory Tests Test 07/01/16 07/01/16 07/01/16 07/01/16 13:35 13:41 18:51 23:02 Prothrombin Time 33.5 SEC (9.8-11.6) Activated Partial 39.7 SEC Thromboplast Time (24.3-30.1) Blood Urea Nitrogen 31 MG/DL (7-18) Creatinine 1.33 MG/DL (0.50-1.00) Estimat Glomerular Filtration 38 ML/MIN (>89) Rate Calcium Level 10.3 MG/DL (8.5-10.1) Alkaline Phosphatase 41 U/L (45-117) Troponin I LESS THAN 0.02 LESS THAN 0.02 LESS THAN 0.02 NG/ML NG/ML NG/ML (0.02-0.05) (0.02-0.05) (0.02-0.05) Albumin 3.3 GM/DL (3.4-5.0) Hemoglobin 11.4 GM/DL (11.6-15.3) Neutrophils (%) (Auto) 71.9 % (16.0-70.0) Monocytes (%) (Auto) 9.9 % (0.0-8.0) B-Type Natriuretic Peptide 187 PG/ML (0-100) Test 07/01/16 07/02/16 07/02/16 07/03/16 23:15 06:05 06:25 09:09 Urine Glucose (UA) 300 mg/dL (NEG) Red Blood Count 3.95 MIL/MM3 (4.00-5.30) Hemoglobin 11.3 GM/DL (11.6-15.3) Hematocrit 33.1 % (35.0-46.0) Monocytes (%) (Auto) 11.3 % (0.0-8.0) Prothrombin Time 24.6 SEC 13.8 SEC (9.8-11.6) (9.8-11.6) Blood Urea Nitrogen 26 MG/DL (7-18) Creatinine 1.09 MG/DL (0.50-1.00) Estimat Glomerular Filtration 47 ML/MIN (>89) Rate Random Glucose 55 MG/DL (74-106) Imaging Last Impressions Thoracentesis Ultrasound 07/03/16 0000 Signed Impressions: Service Date/Time: June 14:46 - CONCLUSION: Uncomplicated ultrasound guided thoracentesis. Duane Damian MD Chest X-Ray 07/03/16 0000 Signed Impressions: Service Date/Time: June 15:54 - CONCLUSION: The left pleural effusion is much smaller. No evidence of pneumothorax. Minimal consolidation left lung base with some platelike atelectasis. Augustine Lan MD CT Angiography 07/01/16 1323 Signed Impressions: Service Date/Time: Friday, July 01, 2016 15:33 - CONCLUSION: 1. No evidence of pulmonary embolism. 2. Large left pleural effusion. This would be accessible to percutaneous drainage. 3. Pulmonary fibrosis Duane Damian MD PE at Discharge GENERAL: AOx3, NAD. SKIN: Warm and dry. HEAD: Normocephalic. EYES: No scleral icterus. No injection or drainage. NECK: Supple, trachea midline. No JVD or lymphadenopathy. CARDIOVASCULAR: Regular rate and rhythm without murmurs, gallops, or rubs. RESPIRATORY: Diminished breath sound on the left lower lung field. Moderate air entry. Right basilar crackles. GASTROINTESTINAL: Abdomen soft, non-tender, nondistended. MUSCULOSKELETAL: No cyanosis, or edema. BACK: Nontender without obvious deformity. No CVA tenderness. Pt update on day of discharge Patient is doing well. She feels better, not on supplemental O2. Tolerating diet well. No acute concerns. She went for thoracentesis in the afternoon and afterwards patient did well. She expressed desire to go home. Hospital Course Ms. Evans is a pleasant 86 year old female with a history of CAD s/p CABG, Afib on warfarin who presented to the ED on 07/01/2016 due to chest pain, shortness of breath. Her symptoms started 5 days prior to this hospitalization. She reports orthopnea. She did not have any fever, chills BNP was 187 on admission. Troponin x 3 negative. Creatinine 1.33 on admission. INR 2.9 on admission. Large left pleural effusion was noted on CT and CXR. - Acute respiratory failure hypoxic - Large left pleural effusion - Likely due to pleural effusion. - CXR, CT angio images reviewed by me. CXR reports possible consolidation. - Increased lasix to 20mg IV BID. - INR is 1.2. Chest x-ray today shows persistent left pleural effusion. Images reviewed by me. - Thoracentesis performed by IR on 07/03/2016. - Continue Levaquin 750mg Qday for a total of 7 days - Diabetes mellitus - Start Levemir 7 units QHS, continue sliding scale insulin. May need to titrate Levemir and add pre-meal insulin. - Continue home meds on discharge. - CAD s/p CABG - Hyperlipidemia - Hypertension - Atrial fibrillation - Continue Amlodipine 2.5mg Qday - Continue Atorvastatin 80mg Qday, metoprolol 50mg BID, Digoxin 0.25mg Qday. - Continue Lasix IV 20mg BID. - Torsemide 10mg BID on discharge. - Hypothyroidism - Continue Levothyroxine 100 mcg Qday. Full code. Continue warfarin on discharge. Pt Condition on Discharge: Good Discharge Disposition: Discharge Home Discharge Time: > 30 minutes Discharge Instructions DIET: Follow Instructions for: Heart Healthy Diet Activities you can perform: Regular-No Restrictions Follow up Referrals: PCP Follow-up - 1 Week New Medications: Torsemide (Torsemide) 10 Mg Tab 10 MG PO BID fluid #60 Ref 0 TAB Levofloxacin (Levaquin) 750 Mg Tab 750 MG PO Q48H Infection #5 TAB Continued Medications: Albuterol 18 GM Inh (Ventolin Hfa 18 GM Inh) 90 Mcg/Act Aer 2 PUFF INH Q4-6H PRN SHORTNESS OF BREATH #1 Ref 0 INHALER Amlodipine (Amlodipine) 2.5 Mg Tab 2.5 MG PO DAILY Blood Pressure Management #30 Ref 0 TAB Digoxin (Digoxin) 0.25 Mg Tab 0.25 MG PO DAILY Regulate Heart Beat #30 Ref 0 TAB Ezetimibe (Zetia) 10 Mg Tab 10 MG PO DAILY #30 Ref 0 TAB Fenofibrate (Fenofibrate) 145 Mg Tab 145 MG PO DAILY #30 Ref 0 TAB Glipizide (Glipizide) 5 Mg Tab 5 MG PO BIDAC Take 30 minutes before a meal Blood Sugar Management #60 Ref 0 TAB Levothyroxine (Levothyroxine) 100 Mcg Tab 100 MCG PO DAILY Thyroid #30 Ref 0 TAB Metoprolol Tartrate (Metoprolol Tartrate) 50 Mg Tab 50 MG PO BID #60 Ref 0 TAB Oxybutynin (Ditropan) 5 Mg Tab 5 MG PO Q12HR Urinary Symptom Managemen #60 Ref 0 TAB Rosuvastatin (Rosuvastatin) 40 Mg Tab 40 MG PO DAILY Cholesterol Management #30 Ref 0 TAB Sitagliptin (Januvia) 50 Mg Tab 50 MG PO DAILY Blood Sugar Management #30 Ref 0 TAB Telmisartan (Telmisartan) 20 Mg Tab 20 MG PO DAILY Blood Pressure Management #30 Ref 0 TAB Warfarin (Warfarin) 5 Mg Tab 5 MG PO DAILY Blood Clot Prevention #30 Ref 0 TAB Discontinued Medications: Furosemide (Furosemide) 40 Mg Tab 40 MG PO DAILY #30 Ref 0 TAB Mary Jo Crenshaw DO July 03, 2016 17:16
[2016-07-03 17:22] LABS: TOTAL PROTEIN,PLEURAL FLUID 4.3 GM/DL
[2016-07-03 18:46] LABS: PLEURAL FLUID LYMPHS 89 %
--- NOTE | 2016-07-04 08:10 | PQ ---
Physician Query Response Document PATIENT: TORY AUSTIN : [id number] ADMIT DATE: 07/01/2016 5:30 PM DISCH DATE: 07/03/2016 5:00 PM RESPONDING PROVIDER #: brittany QUERY TEXT: CHF Acuity and Type Congestive Heart Failure is documented in the Medical Record. Please document the type and acuity (in cludes probable or suspected) Such as: Type: -- Systolic -- Diastolic -- Combined -- Other, please specify Acuity: -- Acute -- Chronic -- Acute on chronic -- Other, please specify Also please document the underlying cause of the CHF (includes probable or suspected) The patient's Clinical Indicators include: ECHO 07/02 LEFT VENTRICLE NORMAL SYSTOLIC FUNCTION NORMAL EJ FX 55% PA PRESSURE 57 mm Hg SYSTOLIC PRESSURE MODERATELY INCREASED. AORTIC STENOSIS W CALCIFIED ANNULUS AND TRILEAFLETS W TRACE REGURGITATION, M ILD TO MODERATE MITRAL AND TRICUSPID VALVE REGURGITATION CT CHEST LEFT BASILAR CONSOLIDATION AND PLERUAL EFFUSION W CARDIOMEGLAY AND PREVIOUS HEART VALVE REPLACEMENT. RIGHT BASILAR ATELECTASIS / BNP 187 LARGE LEFT PLERUAL EFFUSION Lasix to 20mg IV BID. HOME MEDS METOPROLOL AND LASIX Query created by: Veronique Terrell on 07/03/2016 7:55 AM RESPONSE TEXT: Congestive heart failure with preserved ejection fraction (Diastolic heart failure). QUERY TEXT: Clarification of Clinical Diagnostic Findings Please clarify documentation or clinical relevance for the clinical / diagnostic findings or whether those are insignificant or unable to be further specified.Documentation of multiple diagnoses for the same clinical presentation appears in the record. Please clarify the diagnosis/diagnoses Kidney Failure is documented in the Medical Record. Please specify the acuity Such as: ___ Acute kidney insufficiency (codes to unspecified kidney disorder) ___ Acute kidney injury (codes to acute renal failure) ___ Acute renal failure ___ Acute on chronic renal failure ( please clarify stage) ___ Other diagnosis ___ Clinically unable to determine Stages are defined by the [employer] Kid[employer] as follows: CKD Stage I GFR >= 90 ml / min per 1.73 m2 and persistent albuminuria CKD Stage 2 GFR between 60 and 89 with persistent albuminuria CKD Stage 3 GFR between 30 and 59 CKD Stage 4 GFR between 15 and 29 CKD Stage 5 GFR between <15 or End Stage Renal Disease If you have any additional questions/comments and/or concerns, please do not hesitate to reach out to the CDI/Coding Hotline, Ext. [phone] The patient's Clinical Indicators include: acute on chronic renal disease BUN 31, RFID SPECIALIST 1.33, GFR 38 ON ADMISSION PER PROGRESS NOTE 07/02/16 0950 Pt reported having "kidney disease" and family stated she has "stage II or III disease"; her nephrolo gist is reported to be Dimple Castelan M.D. Query created by: Veronique Terrell on 07/03/2016 8:11 AM RESPONSE TEXT: Acute kidney injury - resolved. Initial creatinine 1.33, improved to 1.09. Baseline creatinine around 0.9 (2012). Electronically signed by: Abimael Crenshaw DO 07/04/2016 8:07 AM
== END 2016-07-03 17:00 | disposition home or self-care (01) | DRG 291 ==
LOC: NEPC 12:56 → NEDA 17:30 → N04B 20:00
PROVIDERS: ADMIT Hospitalist; ATTEND Hospitalist
PROC: 0W9B3ZX Drainage of Left Pleural Cavity, Percutaneous Approach, Diagnostic (ICD-10-PCS; principal; 2016-07-03)
DX: I13.0 Hypertensive heart and chronic kidney disease with heart failure and stage 1 through stage 4 chronic kidney disease, or unspecified chronic kidney disease (principal); J96.01 Acute respiratory failure with hypoxia; N17.9 Acute kidney failure, unspecified; J90 Pleural effusion, not elsewhere classified; I50.30 Unspecified diastolic (congestive) heart failure; E11.22 Type 2 diabetes mellitus with diabetic chronic kidney disease; I48.2 Chronic atrial fibrillation; Z95.1 Presence of aortocoronary bypass graft; Z79.01 Long term (current) use of anticoagulants; I25.10 Atherosclerotic heart disease of native coronary artery without angina pectoris; N18.9 Chronic kidney disease, unspecified; I25.2 Old myocardial infarction; E78.5 Hyperlipidemia, unspecified; M19.90 Unspecified osteoarthritis, unspecified site; K21.9 Gastro-esophageal reflux disease without esophagitis; Z95.2 Presence of prosthetic heart valve; M25.511 Pain in right shoulder; E03.9 Hypothyroidism, unspecified; E78.00 Pure hypercholesterolemia, unspecified
CPT/HCPCS: 32555; 71010; 71275; 80048; 80053; 80162; 81001; 82550; 82945; 82948; 83615; 83880; 83986; 84157; 84443; 84484; 85025; 85610; 85730; 87015; 87070; 87102; 87116; 87205; 87206; 88112; 88305; 89051; 93005; 93306; C1729; J1940; J3430; Q9967

== ENCOUNTER 2016-08-08 09:50 | Inpatient (IN) | payer MEDICARE, OTHER ==
[~2016-08-08] VITALS: Ht 152.4 cm; Wt 56.1 kg
[2016-08-08] VITALS (10 sets, daily range): BP systolic 115–182; BP diastolic 55–106; PULSE 59–120; RESP 18–36; TEMP 97.8–98.4; O2SAT 94–99
[~2016-08-08 09:50] MED LIST changes: -ALBU17I INH; +AMLO2.5T PO; -ASPI325T PO; -CHOL4 PO; -DIGO0.12 PO; +DIGO0.25 PO; -DILT180C56 PO; -EZET10 PO; +FENO145T2 PO; -FENO160T2 PO; -FURO1TAB93 PO; -GLIP5 PO; +GLIP5TAB8 PO; +LEVA750T PO; -LEVO.1 PO; +LEVO100T5 PO; -METO50CR PO; +METO50TA PO; -NEXI40CA PO; -OMEPPOW PO; -OXYB5TAB PO; +OXYB5TAB10 PO; +ROSU1TAB10 PO; -ROSU40 PO; +SITA50 PO; +TELM5TAB PO; +TORS10TA2 PO; +VENTAER INH; -WAL-10TA2 PO; +WARF-23 PO; -WARF1TAB PO; +ZETI10TA5 PO
[2016-08-08] MEDS ORDERED: SITA50 PO (10:18)
[2016-08-08] MEDS ORDERED: LANTINJ SQ (10:18)
[2016-08-08] MEDS ORDERED: SODIUM CHLORIDE 0.9% FLUSH 10 ML FLUSH IVF PRN (11:00)
[2016-08-08 11:06] LABS: AUTOMATED NEUTROPHIL # 7.3 TH/MM3 (1.8-7.7); BASOPHIL # 0.1 TH/MM3 (0-0.2); BASOPHIL % 0.9 % (0.0-2.0); EOSINOPHIL # 0.1 TH/MM3 (0-0.4); EOSINOPHIL % 1.6 % (0.0-4.0); HEMATOCRIT 36.2 % (35.0-46.0); HEMO FLAGS DIFF FINAL; LYMPHOCYTE # 0.7 TH/MM3 (1.0-4.8); MEAN CELL VOLUME 81.9 FL (80.0-100.0); MEAN CORPUSCULAR HEMOGLOBIN 27.3 PG (27.0-34.0); MEAN CORPUSCULAR HGB CONC 33.3 % (32.0-36.0); MONO % 8.7 % (0.0-8.0); NEUT % 80.8 % (16.0-70.0); PLATELET COUNT 348 TH/MM3 (150-450); RED BLOOD COUNT 4.42 MIL/MM3 (4.00-5.30); RED CELL DISTRIBUTION WIDTH 15.1 % (11.6-17.2)
[2016-08-08 11:15] LABS: APTT (PATIENT) 38.1 SEC (24.3-30.1); INTERNATIONAL NORMALIZED RATIO 2.3 RATIO; PROTHROMBIN TIME - PATIENT 26.1 SEC (9.8-11.6)
[2016-08-08 11:33] LABS: BICARBONATE 24.1 MEQ/L (21.0-32.0); MAGNESIUM 2.1 MG/DL (1.5-2.5); POTASSIUM 4.3 MEQ/L (3.5-5.1)
--- NOTE | 2016-08-08 11:48 | RADRPT ---
EXAM DATE/TIME: 08/08/2016 11:19 [facility] COMPARISON: US GUIDED THORACENTESIS LEFT, July 03, 2016, 14:46. INDICATIONS : Short of breath MEDICAL HISTORY : Infiltrates SURGICAL HISTORY : CABG. Fluid drainage 3 days ago (left) ENCOUNTER: Initial ACUITY: 1 day PAIN SCORE: Non-responsive. LOCATION: Left chest FINDINGS: A single view of the chest demonstrates postoperative CABG. Cardiomegaly. Basal airspace consolidatio n, left greater than right. No pneumothorax. Small left effusion. CONCLUSION: 1. Small left effusion, improved from July 03. Basal airspace consolidation predominantly in the left side. Cardiomegaly with CABG. Duncan Falcon MD on August 08, 2016 at 11:44 Board Certified Radiologist. This report was verified electronically.
[2016-08-08] MEDS ORDERED: MAGNESIUM HYDROXIDE SUSP 30 ML CUP PO PRN (12:15)
[2016-08-08] MEDS ORDERED: SODIUM CHLORIDE 0.9% FLUSH 10 ML FLUSH IV FLUSH PRN (12:15)
[2016-08-08] MEDS ORDERED: SENNOSIDES 8.6 MG TAB PO PRN (12:15)
[2016-08-08] MEDS ORDERED: BISACODYL 10 MG SUPP RECTAL PRN (12:15)
[2016-08-08] MEDS ORDERED: NALOXONE HCL 0.4 MG/ML AMP IV PRN (12:15)
[2016-08-08] MEDS ORDERED: ONDANSETRON HCL 4 MG/2 ML VIAL IVP PRN (12:15)
[2016-08-08] MEDS ORDERED: LACTULOSE SYRUP 20 GM/30 ML CUP PO PRN (12:15)
--- NOTE | 2016-08-08 12:16 | PD ---
HPI Chief Complaint: Chest Pain Time Seen by Provider: 10:28 Travel History International Travel<30 days: No Contact w/Intl Traveler<30days: No Traveled to known affect area: No History of Present Illness HPI This is an 86-year-old female with history of atrial fibrillation, CHF, diabetes mellitus, who presents today with complaints of left sided pleuritic chest pain. Patient reports pain in her left side of her chest that radiates to her upper left abdomen. She reports it as sharp and intermittent. and son are at the bedside states that she has this pain frequently. She was recently admitted to the hospital and had a left plural effusion drained. She was then discharged home on Lasix. She also reports weakness and some slight dizziness and shortness of breath. PFSH Past Medical History Hx Anticoagulant Therapy: Yes (WARFARIN) Arthritis: Yes Blood Disorders: No Cardiac Catheterization: Yes High Cholesterol: Yes Coronary Artery Disease: Yes Diabetes: Yes GERD: Yes Genitourinary: Yes Hypertension: Yes Psychiatric: No Respiratory: Yes Myocardial Infarction: Yes Thyroid Disease: Yes ?: Not Past Surgical History Abdominal Surgery: Yes Appendectomy: Yes Section: Yes Coronary Artery Bypass Graft: Yes (5 VESSEL IN 1988, 2002 CABG/VALVE) Thoracic Surgery: Yes Social History Alcohol Use: No Tobacco Use: No Substance Use: No Allergies-Medications (Allergen,Severity, Reaction): Coded Allergies: Nitroglycerin (Verified Allergy, Severe, 08/08/16) Uncoded Allergies: NITRO (Allergy, Unknown, 10/24/02) Reported Meds & Prescriptions Reported Meds & Active Scripts Active Torsemide 10 Mg Tab 10 Mg PO BID Reported Lantus Solostar Pen Inj (Insulin Glargine) 300 Unit/3 Ml Pen 28 Units SQ Januvia (Sitagliptin Phosphate) 50 Mg Tab 50 Mg PO DAILY Zetia (Ezetimibe) 10 Mg Tab 10 Mg PO DAILY Warfarin 5 Mg Tab 5 Mg PO DAILY Telmisartan 20 Mg Tab 20 Mg PO DAILY Glipizide 5 Mg Tab 5 Mg PO BIDAC Take 30 minutes before a meal Ditropan (Oxybutynin Chloride) 5 Mg Tab 5 Mg PO Q12HR Metoprolol Tartrate 50 Mg Tab 50 Mg PO BID Rosuvastatin (Rosuvastatin Calcium) 40 Mg Tab 40 Mg PO DAILY Amlodipine (Amlodipine Besylate) 2.5 Mg Tab 2.5 Mg PO DAILY Fenofibrate 145 Mg Tab 145 Mg PO DAILY Levothyroxine (Levothyroxine Sodium) 100 Mcg Tab 100 Mcg PO DAILY Digoxin 0.25 Mg Tab 0.25 Mg PO DAILY Review of Systems Except as stated in HPI: all other systems reviewed are Neg General / Constitutional: No: Fever, Chills HENT: No: Headaches, Vertigo Cardiovascular: Positive: Chest Pain or Discomfort, Palpitations, Irregular Rhythm Respiratory: Positive: Shortness of Breath, Pleuritic Pain, No: Cough Gastrointestinal: No: Nausea, Vomiting, Abdominal Pain Genitourinary: No: Urgency, Dysuria Musculoskeletal: Positive: Weakness, No: Pain Neurologic: Positive: Weakness (Gen.), No: Dizziness ( generalized), Headache , Change in Mentation Physical Exam Narrative GENERAL: Well-developed well-nourished female in moderate rest her discomfort. SKIN: Focused skin assessment warm/dry. HEAD: Atraumatic. Normocephalic. EYES: No scleral icterus. No injection or drainage. ENT: Mucous membranes pink and dry. NECK: Trachea midline. No JVD. Supple. CARDIOVASCULAR: Regular rate and rhythm. Patient then has episodes of paroxysmal A. fib with rapid ventricular response. RESPIRATORY: No accessory muscle use. Clear to auscultation. Breath sounds equal bilaterally. GASTROINTESTINAL: Abdomen soft, non-tender, nondistended. Hepatic and splenic margins not palpable. MUSCULOSKELETAL: No obvious deformities. No clubbing. No cyanosis. No edema. NEUROLOGICAL: Awake and alert. No obvious cranial nerve deficits. Motor grossly within normal limits. Normal speech. Data Data Last Documented VS Vital Signs Date Time Temp Pulse Resp B/P Pulse Ox O2 Delivery O2 Flow Rate FiO2 08/08/16 10:55 97 Nasal Cannula 2 08/08/16 10:55 101 18 182/74 08/08/16 09:54 97.8 Orders Electrocardiogram (08/08/16 10:06) Electrocardiogram (08/08/16 10:53) Basic Metabolic Panel (Bmp) (08/08/16 10:53) Ckmb (Isoenzyme) Profile (08/08/16 10:53) Complete Blood Count With Diff (08/08/16 10:53) Magnesium (Mg) (08/08/16 10:53) Prothrombin Time / Inr (Pt) (08/08/16 10:53) Act Partial Throm Time (Ptt) (08/08/16 10:53) Troponin I (08/08/16 10:53) Chest, Single Ap (08/08/16 10:53) Ecg Monitoring (08/08/16 10:53) Bilateral Bp Monitoring (08/08/16 10:53) Iv Access Insert/Monitor (08/08/16 10:53) Oximetry (08/08/16 10:53) Oxygen Administration (08/08/16 10:53) Sodium Chloride 0.9% Flush (Ns Flush) (08/08/16 11:00) Admit To Inpatient (08/08/16 ) Vital Signs (Adult) Q4H (08/08/16 12:01) Activity Oob With Assistance (08/08/16 12:01) Unified Communications Architect / Telemetry .CONTINUOUS (08/08/16 12:01) Diet Heart Healthy (08/08/16 Lunch) Sodium Chloride 0.9% Flush (Ns Flush) (08/08/16 12:15) Sodium Chloride 0.9% Flush (Ns Flush) (08/08/16 21:00) Acetaminophen (Tylenol) (08/08/16 12:15) Ondansetron Inj (Zofran Inj) (08/08/16 12:15) Basic Metabolic Panel (Bmp) (08/09/16 06:00) Complete Blood Count With Diff (08/09/16 06:00) Troponin I (08/08/16 14:00) Troponin I (08/08/16 20:00) Resp Oxygen Clif C Titrat 1-4 L (08/08/16 ) Naloxone Inj (Narcan Inj) (08/08/16 12:15) Docusate Sodium-Senna (Ciarra-Colace) (08/08/16 21:00) Magnesium Hydroxide Liq (Milk Of Magnesi (08/08/16 12:15) Sennosides (Senokot) (08/08/16 12:15) Bisacodyl Supp (Dulcolax Supp) (08/08/16 12:15) Lactulose Liq (Lactulose Liq) (08/08/16 12:15) Inpatient Certification (08/08/16 ) Sodium Chlor 0.9% 1000 Ml Inj (Ns 1000 M (08/08/16 12:15) Labs Laboratory Tests Test 08/08/16 10:55 White Blood Count 9.0 TH/MM3 Red Blood Count 4.42 MIL/MM3 Hemoglobin 12.0 GM/DL Hematocrit 36.2 % Mean Corpuscular Volume 81.9 FL Mean Corpuscular Hemoglobin 27.3 PG Mean Corpuscular Hemoglobin 33.3 % Concent Red Cell Distribution Width 15.1 % Platelet Count 348 TH/MM3 Mean Platelet Volume 8.2 FL Neutrophils (%) (Auto) 80.8 % Lymphocytes (%) (Auto) 8.0 % Monocytes (%) (Auto) 8.7 % Eosinophils (%) (Auto) 1.6 % Basophils (%) (Auto) 0.9 % Neutrophils # (Auto) 7.3 TH/MM3 Lymphocytes # (Auto) 0.7 TH/MM3 Monocytes # (Auto) 0.8 TH/MM3 Eosinophils # (Auto) 0.1 TH/MM3 Basophils # (Auto) 0.1 TH/MM3 CBC Comment DIFF FINAL Differential Comment Prothrombin Time 26.1 SEC Prothromb Time International 2.3 RATIO Ratio Activated Partial 38.1 SEC Thromboplast Time Sodium Level 137 MEQ/L Potassium Level 4.3 MEQ/L Chloride Level 104 MEQ/L Carbon Dioxide Level 24.1 MEQ/L Anion Gap 9 MEQ/L Blood Urea Nitrogen 26 MG/DL Creatinine 1.06 MG/DL Estimat Glomerular Filtration 49 ML/MIN Rate Random Glucose 177 MG/DL Calcium Level 10.5 MG/DL Magnesium Level 2.1 MG/DL Total Creatine Kinase 42 U/L Troponin I 0.02 NG/ML MDM Medical Decision Making Medical Screen Exam Complete: Yes Emergency Medical Condition: Yes Differential Diagnosis ACS versus CHF versus recurrent pleural effusion Narrative Course 86-year-old female who presents with left sided chest wall pain. The patient has pleuritic discomfort. She also has mild shortness of breath and dizziness. Patient has had a previous pleural centesis for a left pleural effusion. It appears that she has some recurrence of the left pleural effusion. The patient was also noted to be volume depleted with an elevated BUN and creatinine. She' ll be started on IVs fluids. She'll be admitted to telemetry floor because of the paroxysmal A. fib with rapid ventricular response. She is currently now back into sinus rhythm. Given the rapid A. fib, I believe the patient will meet criteria for inpatient. Diagnosis Primary Impression: paroxysmal atrial fibrillation with rapid ventricular response. Additional Impressions: Diabetes mellitus, type II Acute prerenal azotemia Recurrent left pleural effusion Admitting Information Admitting Physician Requests: Admit Demetri Cuellar MD Aug 08, 2016 12:16
[2016-08-08] MEDS: SODIUM CHLOR 0.9% 1000 ML INJ 1,000 ML IV SCH (12:17)
--- NOTE | 2016-08-08 14:30 | HHI.HP ---
[facility] Brock Albright MD Admission Diagnosis paroxysmal rapid afib, dehydration, recurrent pleural effusion. Diagnoses: (1) Atrial fibrillation (2) Recurrent left pleural effusion Chief Complaint: Left pleuritic chest pain, weakness, shortness of breath Travel History International Travel<30 Days: No Contact w/Intl Traveler <30 Da: No Traveled to Known Affected Are: No History of Present Illness Written by No Hamilton, acting as scribe for Dr. Crenshaw on 08/08/16 at 14:00. Mrs. Evans is an 86-year-old female patient with a known history of atrial fibrillation, CHF, type 2 DM, hypertension, CAD with PR/CABG history and hypothyroidism who presented to the ED with complaints of left sided pleuritic chest pain, weakness, dizziness and shortness of breath x 1 week. Patient seen and examined, son at bedside. She states that this left sided chest pain began about a week ago, is intermittent, sharp in nature, occasionally pain is felt in left upper abdomen as well as left shoulder, worse with ambulation and movement. Patient states that she has been unable to walk throughout her home without becoming short of breath and has been feeling overall generally weak. Does admit to poor PO intake and decreased appetite for the past week. Patient does admit to an occasional nonproductive cough. Patient does complaint of orthopnea for sometime now. She also admits to waking up in the middle of the night several times this week short of breath and having to sit up in order to catch her breath. Per medical records, patient had a recent admission on for left sided pleural effusion with thoracentesis, with antibiotic and diuretic therapy. Denies any recent illness, fever, abdominal pain, n/v, diarrhea, hematuria, or dysuria. Denies any recent leg swelling. Does weight herself daily and has not noticed any significant weight gain. Patient's PCP is Dr. Carson; diamond cutter is Dr. Clifton; Mechanic Field Service is Dr. Wilcox. Review of Systems Constitutional: COMPLAINS OF: Fatigue, Chills, Dizziness, Change in appetite Respiratory: COMPLAINS OF: Cough, Shortness of breath Cardiovascular: COMPLAINS OF: Chest pain, Dyspnea on Exertion Gastrointestinal: COMPLAINS OF: Constipation Neurologic: COMPLAINS OF: Localized weakness Except as stated in HPI: all other systems reviewed are Neg Past Family Social History Past Medical History Atrial fibrillation currently on Coumadin Congestive heart failure Type 2 Diabetes mellitus Hypertension CAD with PR history and CABG x 2 Hypothyroidism Past Surgical History Appendectomy CABG with valve replacement without stent placement x 2 in 1988 and 2002. Reported Medications Active Torsemide 10 Mg Tab 10 Mg PO BID Reported Lantus Solostar Pen Inj (Insulin Glargine) 300 Unit/3 Ml Pen 28 Units SQ Januvia (Sitagliptin Phosphate) 50 Mg Tab 50 Mg PO DAILY Zetia (Ezetimibe) 10 Mg Tab 10 Mg PO DAILY Warfarin 5 Mg Tab 5 Mg PO DAILY Telmisartan 20 Mg Tab 20 Mg PO DAILY Glipizide 5 Mg Tab 5 Mg PO BIDAC Take 30 minutes before a meal Ditropan (Oxybutynin Chloride) 5 Mg Tab 5 Mg PO Q12HR Metoprolol Tartrate 50 Mg Tab 50 Mg PO BID Rosuvastatin (Rosuvastatin Calcium) 40 Mg Tab 40 Mg PO DAILY Amlodipine (Amlodipine Besylate) 2.5 Mg Tab 2.5 Mg PO DAILY Fenofibrate 145 Mg Tab 145 Mg PO DAILY Levothyroxine (Levothyroxine Sodium) 100 Mcg Tab 100 Mcg PO DAILY Digoxin 0.25 Mg Tab 0.25 Mg PO DAILY Allergies: Coded Allergies: Nitroglycerin (Verified Allergy, Severe, 08/08/16) Uncoded Allergies: NITRO (Allergy, Unknown, 10/24/02) Active Ordered Medications Current Medications Medications (Trade) Dose Ordered Sig/Shlomo Route Start Time Stop Time Status Last Admin (NS Flush) 2 ml UNSCH PRN IV FLUSH 08/08/16 12:15 (NS Flush) 2 ml BID IV FLUSH 08/08/16 21:00 (Tylenol) 650 mg Q4H PRN PO 08/08/16 12:15 (Zofran Inj) 4 mg Q6H PRN IVP 08/08/16 12:15 (Narcan Inj) 0.4 mg UNSCH PRN IV 08/08/16 12:15 (Ciarra-Colace) 1 tab BID PO 08/08/16 21:00 (Milk Of Magnnidhi Liq) 30 ml Q12H PRN PO 08/08/16 12:15 (Senokot) 17.2 mg Q12H PRN PO 08/08/16 12:15 (Dulcolax Supp) 10 mg DAILY PRN RECTAL 08/08/16 12:15 Lactulose 30 ml 30 ml DAILY PRN PO 08/08/16 12:15 (NS 1000 ml Inj) 1,000 ml @ 84 mls/hr [id number] IV 08/08/16 12:15 08/08/16 12:17 Family History Patient denies any significant family medical history on mother or father's side. Social History Patient is . Denies any current tobacco, alcohol, illicit drug use. Physical Exam Vital Signs Vital Signs Date Time Temp Pulse Resp B/P Pulse Ox O2 Delivery O2 Flow Rate FiO2 08/08/16 13:28 98.1 69 18 126/58 96 08/08/16 12:39 59 18 149/67 99 Nasal Cannula 2 08/08/16 10:55 97 Nasal Cannula 2 08/08/16 10:55 101 18 182/74 97 Nasal Cannula 2 08/08/16 10:55 97 Nasal Cannula 2 08/08/16 10:18 100 18 182/74 96 Room Air 08/08/16 10:10 101 18 157/98 95 Room Air 08/08/16 09:54 97.8 120 36 157/106 97 Room Air Physical Exam GENERAL: Well-nourished, well-developed patient, in no apparent distress, lying in bed comfortably. SKIN: No rashes, ecchymoses or lesions. Warm and dry. HEENT: Atraumatic. Normocephalic. Pupils equal round and reactive. Extraocular motions intact. No scleral icterus. No injection or drainage. Nose without bleeding, purulent drainage or septal hematoma. Airway patent. NECK: Trachea midline. No JVD. Supple. CARDIOVASCULAR: Regular rate and rhythm. No murmur appreciated. RESPIRATORY: Clear to auscultation. Breath sounds equal bilaterally. No wheezes , rales, or rhonchi. GASTROINTESTINAL: Abdomen soft, non-tender, nondistended. No guarding. MUSCULOSKELETAL: Extremities without clubbing, cyanosis, or edema. No joint tenderness, effusion, or edema noted. NEUROLOGICAL: Awake and alert. Cranial nerves II through XII intact. Motor and sensory grossly within normal limits. Five out of 5 muscle strength in all muscle groups. Normal speech. Laboratory Laboratory Tests Test 08/08/16 10:55 White Blood Count 9.0 Red Blood Count 4.42 Hemoglobin 12.0 Hematocrit 36.2 Mean Corpuscular Volume 81.9 Mean Corpuscular Hemoglobin 27.3 Mean Corpuscular Hemoglobin 33.3 Concent Red Cell Distribution Width 15.1 Platelet Count 348 Mean Platelet Volume 8.2 Neutrophils (%) (Auto) 80.8 Lymphocytes (%) (Auto) 8.0 Monocytes (%) (Auto) 8.7 Eosinophils (%) (Auto) 1.6 Basophils (%) (Auto) 0.9 Neutrophils # (Auto) 7.3 Lymphocytes # (Auto) 0.7 Monocytes # (Auto) 0.8 Eosinophils # (Auto) 0.1 Basophils # (Auto) 0.1 CBC Comment DIFF FINAL Differential Comment Prothrombin Time 26.1 Prothromb Time International 2.3 Ratio Activated Partial 38.1 Thromboplast Time Sodium Level 137 Potassium Level 4.3 Chloride Level 104 Carbon Dioxide Level 24.1 Anion Gap 9 Blood Urea Nitrogen 26 Creatinine 1.06 Estimat Glomerular Filtration 49 Rate Random Glucose 177 Calcium Level 10.5 Magnesium Level 2.1 Total Creatine Kinase 42 Troponin I 0.02 Result Diagram: 08/08/16 1055 08/08/16 1055 Imaging Last Impressions Chest X-Ray 08/08/16 1053 Signed Impressions: Service Date/Time: Monday, August 08, 2016 11:19 - CONCLUSION: 1. Small left effusion, improved from July 03. Basal airspace consolidation predominantly in the left side. Cardiomegaly with CABG. Duncan Falcon MD Assessment and Plan Assessment and Plan Mrs. Evans is an 86-year-old female patient with a known history of atrial fibrillation on Coumadin, CHF, type 2 DM, hypertension, CAD with PR/CABG history and hypothyroidism who presented to the ED with complaints of left sided pleuritic chest pain, weakness, dizziness, shortness of breath, poor appetite and PO intake x 1 week. Recently admitted to hospital on 07/03/16 with large left sided pleural effusion, thoracentesis, antibiotic and diuretics therapy. Acute respiratory failure suspect secondary to small left sided pleural effusion Left pleuritic chest pain secondary to above. Systolic congestive heart failure, chronic History of CAD with PR/CABG and bovine/pig valve replacement - Recent admission on 07/03/16 for left sided pleural effusion and thoracentesis - Chest x-ray reviewed showing small left effusion, improved since last image with basal airspace consolidation predominantly in the left side. Cardiomegaly with CABG. - BNP ordered and pending. Follow. - 2-D ECHO reviewed from 06/2016 showing an EF of 55%. Systolic function normal. Aortic valve mild stenosis, mitral and tricuspid mild to moderate regurgitation. Systolic pressure in the pulmonary arteries was moderately increased. - Continue Lasix IV 20mg BID. - Torsemide 10mg PO BID. - Supplemental O2 to keep sats > 92%. Dehydration suspect secondary to poor appetite and PO intake - Continue IVF NS at 84 ml/hr. - Encourage PO intake. - Monitor fluid overload with CHF history, BNP 163 on presentation. - Creatinine 1.08, which is actually improved from kailyn admission. Tachycardia resolved. Paroxysmal atrial fibrillation, acute on chronic - Patient presented with afib RVR in ER. Currently in NSR. - EKG reviewed showing sinus tachycardia with occasional PVCs. - Continue Metoprolol 50mg PO BID - Continue Coumadin, INR therapeutic at 2.3 on presentation. Repeat INR in am. Type 2 Diabetes Mellitus, chronic - Start Levemir 8 units QHS, continue sliding scale insulin, cover are needed. - Hold home glipizide for now. Monitor. Hypertension, chronic - Continue Amlodipine 2.5mg Qday, Digoxin 0.25mg Qday, Amlodipine 2.5mg Qday Hypothyroidism, chronic: Continue Levothyroxine 100 mcg PO daily. Dyslipidemia: Continue Atorvastatin 80mg Qday DVT Prophylaxis: Coumadin INR today 2.3. This note was transcribed by SUYAPA Mckoy. I, Dr. Abimael Crenshaw personally performed the history, physical exam, and medical decision making; and confirmed the accuracy of the information in the transcribed note. Authenticated by Dr. Abimael Crenshaw on 08/08/16 at 22:19. Physician Certification 2 Midnight Certification Type: Admission for Inpatient Services Order for Inpatient Services The services are ordered in accordance with Medicare regulations or non- Medicare payer requirements, as applicable. In the case of services not specified as inpatient-only, they are appropriately provided as inpatient services in accordance with the 2-midnight benchmark. Estimated LOS (days): 3 days is the estimated time the patient will need to remain in the hospital, assuming treatment plan goals are met and no additional complications. Post-Hospital Plan: Not yet determined No Hamilton Aug 08, 2016 14:30 Mary Jo Crenshaw DO Aug 08, 2016 22:20
[2016-08-08] MEDS ORDERED: DEXTROSE 50% IN WATER 50 ML VIAL(D50) IV PRN (15:00)
[2016-08-08] MEDS ORDERED: GLUCAGON 1 MG/ML VIAL OTHER PRN (15:00)
[2016-08-08] MEDS: INSULIN ASPART SUPPLEMENTAL SCALE SQ SCH ×2 (15:44→21:00)
[2016-08-08] MEDS ORDERED: DO NOT ADM ANY ANTICOAGULANT DRUGS OTHER PRN (16:00)
--- NOTE | 2016-08-08 16:23 | EKG ---
Date Performed: 08/08/2016 Time Performed: 10:09:02 PTAGE: 86 years EKG: POSSIBLE ATRIAL FIBRILLATION WITH A RAPID VENTRICULAR RESPONSE. Compared to previous tracin g, the atrial fibrillation is new. ABNORMAL RHYTHM ECG PREVIOUS TRACING : 07/01/2016 13.39 DOCTOR: Bubba Herrera Interpretating Date/Time 08/08/2016 16:21:04
[2016-08-08] MEDS: ACETAMINOPHEN 325 MG TAB PO PRN (20:57)
[2016-08-08] MEDS: OXYBUTYNIN CHLORIDE 5 MG TAB PO SCH (20:57)
[2016-08-08] MEDS: DOCUSATE SODIUM 50 MG/SENNA 8.6 MG TAB PO SCH (20:58)
[2016-08-08] MEDS ORDERED: INSULIN DETEMIR 100 UNITS/ML VIAL SQ SCH (21:00)
[2016-08-08] MEDS: METOPROLOL TARTRATE 50 MG TAB PO SCH (21:00)
[2016-08-08] MEDS: SODIUM CHLORIDE 0.9% FLUSH 10 ML FLUSH IV FLUSH SCH (21:04)
[2016-08-09] VITALS: BP 145/66; PULSE 78; RESP 18; TEMP 97.5; O2SAT 96
[2016-08-09] MEDS: SODIUM CHLOR 0.9% 1000 ML INJ 1,000 ML IV SCH (00:13)
[2016-08-09 04:00] VITALS: BP 144/65; PULSE 86; RESP 20; TEMP 97.7; O2SAT 96
[2016-08-09] MEDS ORDERED: LEVOTHYROXINE SODIUM 100 MCG TAB PO SCH (06:00)
[2016-08-09] MEDS: INSULIN ASPART SUPPLEMENTAL SCALE SQ SCH (06:24)
[2016-08-09 08:03] VITALS: BP 134/62; PULSE 79; RESP 18; TEMP 97.8; O2SAT 94
[2016-08-09 08:30] LABS: AUTOMATED NEUTROPHIL # 5.6 TH/MM3 (1.8-7.7); BASOPHIL # 0.1 TH/MM3 (0-0.2); BASOPHIL % 0.8 % (0.0-2.0); EOSINOPHIL # 0.2 TH/MM3 (0-0.4); EOSINOPHIL % 2.5 % (0.0-4.0); HEMATOCRIT 35.7 % (35.0-46.0); HEMO FLAGS DIFF FINAL; LYMPH % 10.5 % (9.0-44.0); LYMPHOCYTE # 0.8 TH/MM3 (1.0-4.8); MEAN CELL VOLUME 82.3 FL (80.0-100.0); MEAN CORPUSCULAR HEMOGLOBIN 27.3 PG (27.0-34.0); MEAN CORPUSCULAR HGB CONC 33.2 % (32.0-36.0); MONO % 10.2 % (0.0-8.0); PLATELET COUNT 305 TH/MM3 (150-450); RED BLOOD COUNT 4.34 MIL/MM3 (4.00-5.30); RED CELL DISTRIBUTION WIDTH 15.3 % (11.6-17.2); WHITE BLOOD COUNT 7.4 TH/MM3 (4.0-11.0)
[2016-08-09 08:55] LABS: BICARBONATE 26.8 MEQ/L (21.0-32.0); POTASSIUM 4.1 MEQ/L (3.5-5.1)
[2016-08-09] MEDS ORDERED: amLODIPine BESYLATE 5 MG TAB PO SCH (09:00)
[2016-08-09] MEDS ORDERED: ATORVASTATIN 80 MG TAB PO SCH (09:00)
[2016-08-09] MEDS ORDERED: EZETIMIBE 10 MG TAB PO SCH (09:00)
[2016-08-09] MEDS: SODIUM CHLORIDE 0.9% FLUSH 10 ML FLUSH IV FLUSH SCH (09:00)
[2016-08-09] MEDS ORDERED: FENOFIBRATE 145 MG TAB PO SCH (09:00)
[2016-08-09] MEDS ORDERED: DIGOXIN 0.25 MG TAB PO SCH (09:00)
[2016-08-09] MEDS: DOCUSATE SODIUM 50 MG/SENNA 8.6 MG TAB PO SCH (09:52)
[2016-08-09] MEDS: OXYBUTYNIN CHLORIDE 5 MG TAB PO SCH (09:52)
[2016-08-09] MEDS: METOPROLOL TARTRATE 50 MG TAB PO SCH (09:53)
[2016-08-09] MEDS: ACETAMINOPHEN 325 MG TAB PO PRN (09:56)
[2016-08-09 10:51] VITALS: O2SAT 94
--- NOTE | 2016-08-09 11:12 | HHI.PR ---
Subjective Remarks This is a pleasant 86 y/o Female with Atrial Fibrillation, CHF, DM II, Hypertension, CAD with GA status post CABG, Hypothyroidism, who came to ER with left sided pleuritic chest pain, weakness, dizziness and shortness of breath x 1 week, her left sided chest pain began about a week ago, is intermittent, sharp in nature, occasionally pain is felt in left upper abdomen as well as left shoulder, worse with ambulation and movement. Patient states that she has been unable to walk throughout her home without becoming short of breath and has been feeling overall generally weak. Does admit to poor PO intake and decreased appetite for the past week. Patient does admit to an occasional nonproductive cough. Patient does complaint of orthopnea for sometime now. Had recent admission on 07/01/16 for left sided pleural effusion with thoracentesis, with antibiotic and diuretic therapy. Denies any recent illness, fever, abdominal pain, n/v, diarrhea, hematuria, or dysuria. 08/09: Seen in her bedroom after corporate communications specialist Doctor Manuel Capone recommended for discharge no acute coronary disease, discussed in the room with her Son Mr. Guicho Evans and her Mr Orlando Evans complaint about loss of appetite, she does not want to eat or drink during the day, and that is the reason for her Dehydration, will give appetite stimulant and follow with PCP Doctor Alli follow her Primary corporate communications specialist Doctor Elodia also may need a direct marketing specialist as outpatient to follow her Pulmonary status, even not diagnosed she has Pulmonary Fibrosis and history of heavy Tobacco dependence in the past. No nausea, vomit or diarrhea. Objective Vital Signs Date Time Temp Pulse Resp B/P Pulse Ox O2 Delivery O2 Flow Rate FiO2 08/09/16 10:51 94 Nasal Cannula 2.00 08/09/16 10:00 Room Air 08/09/16 08:03 97.8 79 18 134/62 94 08/09/16 04:00 97.7 86 20 144/65 96 08/09/16 00:00 97.5 78 18 145/66 96 08/09/16 00:00 Room Air 08/08/16 20:00 98.4 117 18 140/62 94 08/08/16 20:00 106 08/08/16 20:00 Room Air 08/08/16 17:32 95 Nasal Cannula 2.00 08/08/16 17:04 110 08/08/16 16:00 97.9 73 18 115/55 95 08/08/16 14:39 Room Air 08/08/16 13:28 98.1 69 18 126/58 96 08/08/16 12:39 59 18 149/67 99 Nasal Cannula 2 I/O 08/08/16 08/08/16 08/08/16 08/09/16 08/09/16 08/09/16 07:00 15:00 23:00 07:00 15:00 23:00 Intake Total 911 ml 501 ml Output Total 700 ml Balance 911 ml -199 ml Intake Oral 0 ml 0 ml IV Total 911 ml 501 ml Output Urine Total 700 ml # Voids 3 2 # Bowel Movements 0 1 Result Diagram: 08/09/16 0742 08/09/16 0742 Imaging Last Impressions Chest X-Ray 08/08/16 1053 Signed Impressions: Service Date/Time: Monday, August 08, 2016 11:19 - CONCLUSION: 1. Small left effusion, improved from July 03. Basal airspace consolidation predominantly in the left side. Cardiomegaly with CABG. Duncan Falcon MD Procedures None Other Results Laboratory Tests Test 08/08/16 08/08/16 08/09/16 10:55 19:41 07:42 Prothrombin Time 26.1 SEC Prothromb Time International 2.3 RATIO Ratio Activated Partial 38.1 SEC Thromboplast Time Magnesium Level 2.1 MG/DL Total Creatine Kinase 42 U/L B-Type Natriuretic Peptide 163 PG/ML Troponin I 0.03 NG/ML White Blood Count 7.4 TH/MM3 Red Blood Count 4.34 MIL/MM3 Hemoglobin 11.9 GM/DL Hematocrit 35.7 % Mean Corpuscular Volume 82.3 FL Mean Corpuscular Hemoglobin 27.3 PG Mean Corpuscular Hemoglobin 33.2 % Concent Red Cell Distribution Width 15.3 % Platelet Count 305 TH/MM3 Mean Platelet Volume 7.7 FL Neutrophils (%) (Auto) 76.0 % Lymphocytes (%) (Auto) 10.5 % Monocytes (%) (Auto) 10.2 % Eosinophils (%) (Auto) 2.5 % Basophils (%) (Auto) 0.8 % Neutrophils # (Auto) 5.6 TH/MM3 Lymphocytes # (Auto) 0.8 TH/MM3 Monocytes # (Auto) 0.8 TH/MM3 Eosinophils # (Auto) 0.2 TH/MM3 Basophils # (Auto) 0.1 TH/MM3 CBC Comment DIFF FINAL Differential Comment Sodium Level 141 MEQ/L Potassium Level 4.1 MEQ/L Chloride Level 106 MEQ/L Carbon Dioxide Level 26.8 MEQ/L Anion Gap 8 MEQ/L Blood Urea Nitrogen 20 MG/DL Creatinine 0.93 MG/DL Estimat Glomerular Filtration 57 ML/MIN Rate Random Glucose 133 MG/DL Calcium Level 9.4 MG/DL Objective Remarks GENERAL: Well-developed patient, in no apparent distress, lying in bed comfortably. SKIN: No rashes, ecchymoses or lesions. Warm and dry. HEENT: Atraumatic. Normocephalic. Pupils equal round and reactive. Extraocular motions intact. No scleral icterus. No injection or drainage. Nose without bleeding, purulent drainage or septal hematoma. Airway patent. NECK: Trachea midline. No JVD. Supple. CARDIOVASCULAR: Regular rate and rhythm. No murmur appreciated. RESPIRATORY: Severe Decreased breath sounds bilateral with Inspiratory Crackles on both Lung sykes. GASTROINTESTINAL: Abdomen soft, non-tender, nondistended. No guarding. MUSCULOSKELETAL: Extremities without clubbing, cyanosis, or edema. No joint tenderness, effusion, or edema noted. NEUROLOGICAL: Awake and alert. Cranial nerves II through XII intact. Motor and sensory grossly within normal limits. Five out of 5 muscle strength in all muscle groups. Normal speech. Medications and IVs Current Medications Medications (Trade) Dose Ordered Sig/Shlomo Route Start Time Stop Time Status Last Admin (NS Flush) 2 ml UNSCH PRN IV FLUSH 08/08/16 12:15 (NS Flush) 2 ml BID IV FLUSH 08/08/16 21:00 08/08/16 21:04 (Tylenol) 650 mg Q4H PRN PO 08/08/16 12:15 08/09/16 09:56 (Zofran Inj) 4 mg Q6H PRN IVP 08/08/16 12:15 (Narcan Inj) 0.4 mg UNSCH PRN IV 08/08/16 12:15 (Ciarra-Colace) 1 tab BID PO 08/08/16 21:00 08/09/16 09:52 (Milk Of Magnesia Liq) 30 ml Q12H PRN PO 08/08/16 12:15 (Senokot) 17.2 mg Q12H PRN PO 08/08/16 12:15 (Dulcolax Supp) 10 mg DAILY PRN RECTAL 08/08/16 12:15 Lactulose 30 ml 30 ml DAILY PRN PO 08/08/16 12:15 (NS 1000 ml Inj) 1,000 ml @ 84 mls/hr [id number] IV 08/08/16 12:15 08/09/16 00:13 (Norvasc) 2.5 mg DAILY PO 08/09/16 09:00 08/09/16 09:53 (Lanoxin) 0.25 mg DAILY PO 08/09/16 09:00 08/09/16 09:52 (Zetia) 10 mg DAILY PO 08/09/16 09:00 08/09/16 09:52 (Tricor) 145 mg DAILY PO 08/09/16 09:00 08/09/16 09:52 (Synthroid) 100 mcg DAILY@06 PO 08/09/16 06:00 08/09/16 05:57 (Lopressor) 50 mg BID PO 08/08/16 21:00 08/09/16 09:53 (Ditropan) 5 mg Q12HR PO 08/08/16 21:00 08/09/16 09:52 (Coumadin) 5 mg DAILY@16 PO 08/09/16 16:00 (Lipitor) 80 mg DAILY PO 08/09/16 09:00 08/09/16 09:51 (D50w (Vial) Inj) 50 ml UNSCH PRN IV 08/08/16 15:00 (Glucagon Inj) 1 mg UNSCH PRN OTHER 08/08/16 15:00 (Levemir Inj) 8 units HS SQ 08/08/16 21:00 08/08/16 21:47 Miscellaneous Information ALL NURSING DEPARTME... UNSCH PRN OTHER 08/08/16 16:00 08/09/16 15:59 (Coumadin Booklet) 1 ONCE ONCE OTHER 08/09/16 16:00 08/09/16 16:01 A/P Assessment and Plan Mrs. Evans is an 86-year-old female patient with a known history of atrial fibrillation on Coumadin, CHF, type 2 DM, hypertension, CAD with GA/CABG history and hypothyroidism who presented to the ED with complaints of left sided pleuritic chest pain, weakness, dizziness, shortness of breath, poor appetite and PO intake x 1 week. Recently admitted to hospital on 07/03/16 with large left sided pleural effusion, thoracentesis, antibiotic and diuretics therapy. 1. Acute on chronic Respiratory Insufficiency, she does not have Failure, had in the past Pleural Effusion status post Thoracentesis and Improved now has Mild Pleural Effusion on the left. 2. non diagnosed COPD she has Pulmonary Fibrosis started on Symbicort will need direct marketing specialist as outpatient, continue Inhalers. had suspected malignant cells on Pleural Effusion. 3. Chronic Congestive Heart failure in a patient with CAD with GA/CABG and bovine/pig valve replacement - Recent admission on 07/03/16 for left sided pleural effusion and thoracentesis - Chest x-ray reviewed showing small left effusion, improved since last image with basal airspace consolidation predominantly in the left side. Cardiomegaly with CABG. - BNP 163 - 2-D ECHO reviewed from 06/2016 showing an EF of 55%. Systolic function normal. Aortic valve mild stenosis, mitral and tricuspid mild to moderate regurgitation. Systolic pressure in the pulmonary arteries was moderately increased. continue Home medicines, see by corporate communications specialist and recommended for discharge as per Doctor Manuel Capone her family and nurse Miss Trejo confirmed was clear for discharge 4. Dehydration suspect secondary to poor appetite and PO intake, improved with IV fluids, added Megestrol. 5. Paroxysmal atrial fibrillation, acute on chronic - Patient presented with afib RVR in ER. Currently in NSR. - EKG reviewed showing sinus tachycardia with occasional PVCs. - Continue home medicines okay to discharge from Cardiology standpoint 6. Type 2 Diabetes Mellitus, chronic continue home medicines at discharge. 7. Hypertension, chronic continue Home medicines. 8. Hypothyroidism, chronic: Continue Levothyroxine 100 mcg PO daily. 9. Dyslipidemia: Continue Atorvastatin 80mg Qday DVT Prophylaxis: Coumadin continue Discussed with patient and her Son Mr. Errol Evans and her Mr. Orlando Evans and they state they were recommended for discharge by Doctor Capone and want to go home now I agree, needs to follow with PCP and Cardiology Doctor Elodia as outpatient. discharge Home and follow with PCP and corporate communications specialist. Discharge Planning Discharge home Eloy Cai MD Aug 09, 2016 11:12
[2016-08-09] MEDS ORDERED: MEGE40SU PO (11:59)
[2016-08-09] MEDS ORDERED: SYMB80AE INH (11:59)
[2016-08-09 12:03] VITALS: BP 139/64; PULSE 73; RESP 19; TEMP 97.6; O2SAT 95
--- NOTE | 2016-08-09 12:18 | HHI.DS ---
Discharge Summary Admission Date Aug 08, 2016 at 12:19 Discharge Date: Aug 09, 2016 Admitting Diagnosis paroxysmal rapid afib, dehydration, recurrent pleural effusion. (1) Atrial fibrillation ICD Code: I48.91 Diagnosis: Principal (2) Recurrent left pleural effusion ICD Code: J90 Diagnosis: Principal Procedures None Brief History - From Admission Written by No Hamilton, acting as scribe for Dr. Crenshaw on 08/08/16 at 14:00. Mrs. Evans is an 86-year-old female patient with a known history of atrial fibrillation, CHF, type 2 DM, hypertension, CAD with WI/CABG history and hypothyroidism who presented to the ED with complaints of left sided pleuritic chest pain, weakness, dizziness and shortness of breath x 1 week. Patient seen and examined, son at bedside. She states that this left sided chest pain began about a week ago, is intermittent, sharp in nature, occasionally pain is felt in left upper abdomen as well as left shoulder, worse with ambulation and movement. Patient states that she has been unable to walk throughout her home without becoming short of breath and has been feeling overall generally weak. Does admit to poor PO intake and decreased appetite for the past week. Patient does admit to an occasional nonproductive cough. Patient does complaint of orthopnea for sometime now. She also admits to waking up in the middle of the night several times this week short of breath and having to sit up in order to catch her breath. Per medical records, patient had a recent admission on for left sided pleural effusion with thoracentesis, with antibiotic and diuretic therapy. Denies any recent illness, fever, abdominal pain, n/v, diarrhea, hematuria, or dysuria. Denies any recent leg swelling. Does weight herself daily and has not noticed any significant weight gain. Patient's PCP is Dr. Carson; health advisor is Dr. Clifton; Instructional Support Specialist is Dr. Wilcox. CBC/BMP: 08/09/16 0742 08/09/16 0742 Significant Findings Laboratory Tests Test 08/08/16 08/09/16 10:55 07:42 Neutrophils (%) (Auto) 80.8 % 76.0 % (16.0-70.0) (16.0-70.0) Lymphocytes (%) (Auto) 8.0 % (9.0-44.0) Monocytes (%) (Auto) 8.7 % (0.0-8.0) 10.2 % (0.0-8.0) Lymphocytes # (Auto) 0.7 TH/MM3 0.8 TH/MM3 (1.0-4.8) (1.0-4.8) Prothrombin Time 26.1 SEC (9.8-11.6) Activated Partial 38.1 SEC Thromboplast Time (24.3-30.1) Blood Urea Nitrogen 26 MG/DL (7-18) 20 MG/DL (7-18) Creatinine 1.06 MG/DL (0.50-1.00) Estimat Glomerular Filtration 49 ML/MIN (>89) 57 ML/MIN (>89) Rate Random Glucose 177 MG/DL 133 MG/DL (74-106) (74-106) Calcium Level 10.5 MG/DL (8.5-10.1) B-Type Natriuretic Peptide 163 PG/ML (0-100) Imaging Last Impressions Chest X-Ray 08/08/16 1053 Signed Impressions: Service Date/Time: Monday, August 08, 2016 11:19 - CONCLUSION: 1. Small left effusion, improved from July 03. Basal airspace consolidation predominantly in the left side. Cardiomegaly with CABG. Duncan Falcon MD PE at Discharge GENERAL: Well-developed patient, in no apparent distress, lying in bed comfortably. SKIN: No rashes, ecchymoses or lesions. Warm and dry. HEENT: Atraumatic. Normocephalic. Pupils equal round and reactive. Extraocular motions intact. No scleral icterus. No injection or drainage. Nose without bleeding, purulent drainage or septal hematoma. Airway patent. NECK: Trachea midline. No JVD. Supple. CARDIOVASCULAR: Regular rate and rhythm. No murmur appreciated. RESPIRATORY: Severe Decreased breath sounds bilateral with Inspiratory Crackles on both Lung sykes. GASTROINTESTINAL: Abdomen soft, non-tender, nondistended. No guarding. MUSCULOSKELETAL: Extremities without clubbing, cyanosis, or edema. No joint tenderness, effusion, or edema noted. NEUROLOGICAL: Awake and alert. Cranial nerves II through XII intact. Motor and sensory grossly within normal limits. Five out of 5 muscle strength in all muscle groups. Normal speech. Hospital Course This is a pleasant 86 y/o Female with Atrial Fibrillation, CHF, DM II, Hypertension, CAD with WI status post CABG, Hypothyroidism, who came to ER with left sided pleuritic chest pain, weakness, dizziness and shortness of breath x 1 week, her left sided chest pain began about a week ago, is intermittent, sharp in nature, occasionally pain is felt in left upper abdomen as well as left shoulder, worse with ambulation and movement. Patient states that she has been unable to walk throughout her home without becoming short of breath and has been feeling overall generally weak. Does admit to poor PO intake and decreased appetite for the past week. Patient does admit to an occasional nonproductive cough. Patient does complaint of orthopnea for sometime now. Had recent admission on 07/01/16 for left sided pleural effusion with thoracentesis, with antibiotic and diuretic therapy. Denies any recent illness, fever, abdominal pain, n/v, diarrhea, hematuria, or dysuria. 08/09: Seen in her bedroom after biomedical specialist Doctor Manuel Capone recommended for discharge no acute coronary disease, discussed in the room with her Son Mr. Guicho Evans and her Mr Orlando Evans complaint about loss of appetite, she does not want to eat or drink during the day, and that is the reason for her Dehydration, will give appetite stimulant and follow with PCP Doctor Alli follow her Primary biomedical specialist Doctor Elodia also may need a military communications specialist as outpatient to follow her Pulmonary status, even not diagnosed she has Pulmonary Fibrosis and history of heavy Tobacco dependence in the past. No nausea, vomit or diarrhea. Assessment and Plan Mrs. Evans is an 86-year-old female patient with a known history of atrial fibrillation on Coumadin, CHF, type 2 DM, hypertension, CAD with WI/CABG history and hypothyroidism who presented to the ED with complaints of left sided pleuritic chest pain, weakness, dizziness, shortness of breath, poor appetite and PO intake x 1 week. Recently admitted to hospital on 07/03/16 with large left sided pleural effusion, thoracentesis, antibiotic and diuretics therapy. 1. Acute on chronic Respiratory Insufficiency, she does not have Failure, had in the past Pleural Effusion status post Thoracentesis and Improved now has Mild Pleural Effusion on the left. 2. non diagnosed COPD she has Pulmonary Fibrosis started on Symbicort will need military communications specialist as outpatient, continue Inhalers. had suspected malignant cells on Pleural Effusion. 3. 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 Cardiomegaly with CABG. - BNP 163 - 2-D ECHO reviewed from 06/2016 showing an EF of 55%. Systolic function normal. Aortic valve mild stenosis, mitral and tricuspid mild to moderate regurgitation. Systolic pressure in the pulmonary arteries was moderately increased. continue Home medicines, see by biomedical specialist and recommended for discharge as per Doctor Manuel Capone her family and nurse Miss Trejo confirmed was clear for discharge 4. Dehydration suspect secondary to poor appetite and PO intake, improved with IV fluids, added Megestrol. 5. Paroxysmal atrial fibrillation, acute on chronic - Patient presented with afib RVR in ER. Currently in NSR. - EKG reviewed showing sinus tachycardia with occasional PVCs. - Continue home medicines okay to discharge from Cardiology standpoint 6. Type 2 Diabetes Mellitus, chronic continue home medicines at discharge. 7. Hypertension, chronic continue Home medicines. 8. Hypothyroidism, chronic: Continue Levothyroxine 100 mcg PO daily. 9. Dyslipidemia: Continue Atorvastatin 80mg Qday DVT Prophylaxis: Coumadin continue Discussed with patient and her Son Mr. Errol Evans and her Mr. Orlando Evans and they state they were recommended for discharge by Doctor Capone and want to go home now I agree, needs to follow with PCP and Cardiology Doctor Elodia as outpatient. discharge Home and follow with PCP and biomedical specialist. Discharge Planning Discharge home Pt Condition on Discharge: Fair Discharge Disposition: Discharge Home Discharge Time: <= 30 minutes Discharge Instructions DIET: Follow Instructions for: Heart Healthy Diet, Diabetic Diet Activities you can perform: Regular-No Restrictions Eloy Cai MD Aug 09, 2016 12:18
--- NOTE | 2016-08-09 13:44 | MB ---
cc: JENNIFER JOSEPH MD DATE OF CONSULTATION: 08/09/2016 REASON FOR CONSULTATION: Shortness of breath and generalized weakness. HISTORY OF PRESENT ILLNESS The patient is a very pleasant 86 year-old woman who sees my partner Dr. Clifton who has a history of atrial fibrillation, congestive heart failure, diabetes, hypertension, coronary artery disease who presented generally with weakness, sharp intermittent pleuritic chest pains, dizziness and shortness of breath. She was admitted and felt to be dehydrated was given IV fluids and actually feels quite a bit better. She is hoping to be discharged home now and she has a relative [employer] to attend tomorrow. She denies any current symptoms such as residual chest pain, residual shortness of breath, lightheadedness, dizziness, syncope. PAST MEDICAL HISTORY As above. CURRENT MEDICATIONS 1. Warfarin 5 mg daily 2. Amlodipine 2.5 mg. 3. Digoxin 0.25 mg daily 4. Zetia 10 mg daily. 5. Tricor 145 mg daily 6. Lipitor 80 mg daily. 7. Synthroid 100 mcg daily. 8. Lopressor 50 mg b.i.d. 9. Oxybutynin 5 mg q. 12. ALLERGIES NITROGLYCERIN PHYSICAL EXAMINATION: VITAL SIGNS: afebrile, pulse 79, respiratory rate 18, BP /03 462, satting 94% 2 liters. GENEARL: Pleasant elderly woman in no distress. NECK: No JVD. LUNGS: Clear auscultation bilaterally. CARDIOVASCULAR SYSTEM: Irregularly irregular rhythm with a regular rate and 1-2/6 systolic murmurs appreciated. ABDOMEN: Abdomen is benign. EXTREMITIES: No edema. LABORATORY DATA: Sodium 141 potassium 4.1, chloride 106, bicarb 26.8, BUN 8, creatinine. BUN is 20, creatinine 0.93, glucose 133, cardiac enzymes are negative x3. BNP is 163, INR is 2.3, white count 7.4, hematocrit 35.7, platelets 305. Electrocardiogram; showed atrial fibrillation with rapid ventricular response. Current; showed rate controlled atrial fibrillation. IMPRESSION Atrial fibrillation with RVR. The patient was felt to be dehydrated and her atrial fibrillation rates have come down with IV fluids. She is now asymptomatic and hoping to be discharged home. She is anticoagulated on warfarin. The patient does have intermittent atypical chest pain and I did offer a workup including a stress test but she declines as does her family. They wish for only conservative medical therapy given her advanced age and they wish be discharged home today so they can attend a family activities this weekend. They understand and accept that they do take some risk upon themselves for refusing a full workup but I think their reasoning is understandable. Thus I will sign off and she can follow up with Dr. Clifton as an outpatient. Thank you again for the opportunity to participate in this patients care. MD ALEJA Gupta/lloyd /11:10 AM /1:36 PM
[2016-08-09] MEDS ORDERED: WARFARIN SOD 5 MG TAB PO SCH (16:00)
== END 2016-08-09 13:08 | disposition home or self-care (01) | DRG 309 ==
LOC: NEPC 09:50 → NEDA 12:19 → N04B 13:04
PROVIDERS: ADMIT Internal Medicine; ATTEND Internal Medicine
DX: I48.0 Paroxysmal atrial fibrillation (principal); I50.22 Chronic systolic (congestive) heart failure; I11.0 Hypertensive heart disease with heart failure; J84.10 Pulmonary fibrosis, unspecified; E86.0 Dehydration; E11.9 Type 2 diabetes mellitus without complications; R79.89 Other specified abnormal findings of blood chemistry; I25.10 Atherosclerotic heart disease of native coronary artery without angina pectoris; E03.9 Hypothyroidism, unspecified; J44.9 Chronic obstructive pulmonary disease, unspecified; I08.3 Combined rheumatic disorders of mitral, aortic and tricuspid valves; E78.5 Hyperlipidemia, unspecified; Z95.1 Presence of aortocoronary bypass graft; Z79.01 Long term (current) use of anticoagulants; Z95.5 Presence of coronary angioplasty implant and graft; Z95.2 Presence of prosthetic heart valve
CPT/HCPCS: 71010; 80048; 82550; 82948; 83735; 83880; 84484; 85025; 85610; 85730; 93005; J7030